=== PATIENT | female | born 1985 | race Caucasian/White ===

== ENCOUNTER 2020-06-14 09:07 | Outpatient (REF) | payer OTHER, SELFPAY | END 2020-06-14 09:08 | disposition home or self-care (01) | LOC: HO.LAB 09:07 | PROVIDERS: Visit Provider Internal Medicine | DX: Z20.828 Contact with and (suspected) exposure to other viral communicable diseases (principal) | CPT/HCPCS: C9803; U0003 ==

== ENCOUNTER 2020-06-25 16:41 | Emergency (ER) | payer OTHER, SELFPAY ==
[2020-06-25 16:50] VITALS: BP 151/100; PULSE 82; RESP 16; TEMP 36.9; O2SAT 99; BMI 23.3
--- NOTE | 2020-06-25 17:13 | ED_ITS ---
HPI - General Adult General Chief complaint: General Medical Stated complaint: hives Time Seen by Provider: 06/25/20 17:06 Source: patient Mode of arrival: ambulatory History of Present Illness HPI narrative: 35-year-old female with past medical history of seizure disorder, asthma, and prior allergic reaction presents with hives to her face, bilateral flanks and abdomen, and arms. she does not report using any new products, eating any new foods, or any exposures to known allergens. She does not report chest pain or pressure, palpitations, wheezing, abdominal pain, abdominal distention, dysuria, hematuria, and edema. Onset (ago): hour(s) ( Several hours) Location: face, chest, abdomen, left, right and upper extremity Severity: moderate Severity scale (1-10): 5 Quality: burning and other ( itching) Relieving factors: none Treatments prior to arrival: none Related Data Home Medications Medication Instructions Recorded Confirmed albuterol sulfate 1 unit INHALATION Q6H PRN 06/25/20 06/25/20 cetirizine 1 tab PO DAILY 06/25/20 06/25/20 epinephrine 1 device IM DIRECTED 06/25/20 06/25/20 fluticasone propion-salmeterol drp INHALATION Q12H 06/25/20 06/25/20 levetiracetam 1 tab PO BID 06/25/20 06/25/20 Allergies Allergy/AdvReac Type Severity Reaction Status Date / Time animal dander Allergy Itching Verified 06/25/20 17:00 house dust Allergy Watery Eye Verified 06/25/20 17:00 seafood Allergy Hives Verified 06/25/20 17:00 Fruit Allergy Hives Uncoded 06/25/20 17:00 Review of Systems Review of Systems: Constitutional: No Fever, No Chills ENT/Mouth:no oral swelling, No Hoarseness, No Swallowing Difficulty Eyes: No Eye Pain, No Swelling, No Redness Cardiovascular: No Chest Pain, No SOB Respiratory: No Cough, No Sputum, No Wheezing, No Smoke Exposure, No Dyspnea Gastrointestinal: No Nausea, No Vomiting, No Diarrhea, No abdominal Pain Genitourinary: No Dysuria, No Urinary Frequency, No Hematuria Musculoskeletal: No joint pain, No Myalgias, No Joint Swelling Skin: No Skin Lesions, positive rash to face, manoj flank, abd and arms Neuro: No Weakness, No Numbness, No Headache Psych: No Anxiety/Panic, No Depression Heme/Lymph: No Bruising, No Lymphadenopathy Endocrine: No Polyuria, No Polydipsia Yes all other systems are reviewed and are negative [facility] Past Medical History Attestation statement: The following information was validated with the patient. Medical History Asthma COPD (chronic obstructive pulmonary disease) Hypertension Seizures Surgical History History of hysterectomy Social History Social History Alcohol intake: never Smoking Status: Never smoker Use of substances other than those prescribed or required for medical reasons: No Advance Directives: No Advance Directives Information Provided: No Physical Exam Vital Signs: Vital Signs: Last Vital Signs Temp 98.5 F 06/25/20 16:50 Pulse 65 06/25/20 17:37 Resp 16 06/25/20 17:37 BP 146/101 H 06/25/20 17:37 Pulse Ox 100 06/25/20 17:37 Body Mass Index 23.3 Appearance: Alert. Oriented X3. No acute distress. Eyes: Pupils equal, round and reactive to light. ENT: Pharynx normal. Neck: Normal inspection. Neck supple. CVS: Normal heart rate and rhythm. Pulses normal. Respiratory: No respiratory distress. Breath sounds normal. Abdomen: Soft and nontender. Skin: urticaria and hives to face, arms and chest Skin warm and dry. Normal skin color. Normal skin turgor. Extremities: No lower extremity edema. Neuro: No motor deficit. No sensory deficit. Course Course Course Narrative: 35-year-old female with past medical history of seizure disorder on Keppra, asthma, and history of allergy reaction with EpiPen, presents with mild urticaria and throat irritation. It is unknown what she was exposed to plan of care is for Solu-Medrol, Pepcid, and Benadryl with 1 L of normal saline. Re-evaluation at 8:05 p.m., patient is alert oriented x4, no respiratory distress, appears nontoxic, clear lung sounds to all lobes. Urticaria no longer present. Plan of care is to discharge home with follow-up with primary care physician for follow-up for allergy testing. Patient verbalized understanding of and agrees to plan of care discharge home. Reevaluation(s) Reevaluation #1: After receiving Benadryl, and Solu-Medrol patient had an episode of tachycardia and tremors. She she told the staff nurse that she felt like she was going to seizure, does take Keppra twice a day. Dr. Onofre at bedside at this time with this [employer], patient responsive to smelling salts and able to answer questions. Time: 17:36 Medical Decision Making Differential Diagnosis Differential Diagnosis: Allergic reaction Medical Records Medical records reviewed: Yes I reviewed the patient's medical records. Lab Data Lab results reviewed: Yes I reviewed the patient's lab results. Discharge Plan Discharge Clinical Impression: Urticaria Allergic reaction Qualifiers: Encounter type: initial encounter Qualified Code(s): T78.40XA - Allergy, unspecified, initial encounter Patient Disposition: Home, Self-Care Instructions: Urticaria (ED), Allergies (ED) Additional Instructions: you were evaluated for allergic reaction and rash to the face, arms and chest and some throat irritation. Please follow-up with your primary care physician for further allergy testing. Please take Benadryl every 6 hours as needed to control itching. If symptoms persist or get worse return to the emergency department immediately. Thank you for choosing this emergency department for evaluation. Please follow-up with primary care physician as needed. Return to the emergency department for any new, concerning, or worsening symptoms. Prescriptions: No Action albuterol sulfate 2.5 mg /3 mL (0.083 %) solution for nebulization 1 unit inhalation Q6H PRN (Reason: respiratory symptoms) RF: 0 cetirizine 10 mg tablet 1 tab PO DAILY RF: 0 levetiracetam 500 mg tablet 1 tab PO BID RF: 0 epinephrine 0.3 mg/0.3 mL auto-injector 1 device IM DIRECTED RF: 0 fluticasone propion-salmeterol 232-14 mcg/actuation aerosol powdr breath activated inhalation Q12H RF: 0 Interventions: ED Discharge Assessment Last Done: 06/25/20 20:34 Discharge Date/Time: 06/25/20 20:36
[2020-06-25] MEDS: Famotidine/PF 20 MG/2 ML VIAL IVPUSH (17:27)
[2020-06-25] MEDS: 0.9 % Sodium Chloride 1,000 ML 999 ML IVCONT (17:27)
[2020-06-25] MEDS: methylPREDNISolone Sod Succ/PF 125 MG/2 ML VIAL IVPUSH (17:27)
[2020-06-25] MEDS: diphenhydrAMINE HCL 50 MG/ML VIAL 25 MG IVPUSH (17:27)
[2020-06-25 17:37] VITALS: BP 146/101; PULSE 65; RESP 16; O2SAT 100
--- NOTE | 2020-06-25 17:40 | PC.NURSE ---
PT SITTING S/F IN BED, RR EVEN UNLABORED, SKIN WPD, AOX3, NSR ON TELE. PT REPORTS FEELING THE BEGINNINGS OF AN ALLERGIC RXN, NO KNOWN EXPOSURE SOURCE, REPORTS HX OF SEVERE ALLERGIC REACTIONS. PT IN NAD, LUNGS CTATO, VSS, SPO2 100%, NO APPARENT RASH/HIVES, BREATHING WITH EASE. IV ESTABLIHSED, WHILE PT MEDICATED PT PER EMAR PT STATED I THINK IM GOING TO HAVE A SEIZURE, HR INCREASED TO 150 ON TELE, DR DOBBINS CALLED TO ROOM, PT THEN CLOSED EYES AND HAD BRIEF EPISODE OF FULL BODY SHAKING, NO INCONTINENCE, SPO2 REMAINED 100%. PT SAT UPRIGHT, EPISODE STOPPED AND PT IMMEDIATELY AWAKE/ALERT, HR RETURED TO 70'S.
== END 2020-06-25 20:36 | disposition home or self-care (01) ==
PROVIDERS: Emergency Provider Emergency Medicine
DX: L50.9 Urticaria, unspecified (principal); Z79.899 Other long term (current) drug therapy
CPT/HCPCS: 96361; 96374; 96375; 99284; J1200; J2930

== ENCOUNTER 2020-08-22 12:02 | Emergency (ER) | payer OTHER, SELFPAY ==
[2020-08-22 12:15] VITALS: BP 174/84; PULSE 89; RESP 20; TEMP 37.1; O2SAT 100; BMI 23.8
--- NOTE | 2020-08-22 14:05 | XR_ITS ---
EXAMINATION: XR CHEST CLINICAL INFORMATION: SOB/cough. COMPARISON: None TECHNIQUE: Frontal view of the chest was obtained. FINDINGS: The lungs are hyperinflated but clear of acute process. Heart size and pulmonary vascularity is normal. There is mild scoliosis of dorsal spine. No lytic process seen. XR/XR chest 1V IMPRESSION: Hyperinflated lungs are clear.
--- NOTE | 2020-08-22 14:13 | ED.ASTHMA ---
HPI - Asthma General Chief Complaint: Asthma Stated Complaint: CHEST PAIN Time Seen by Provider: 08/22/20 14:05 Source: patient Mode of arrival: ambulatory Limitations: no limitations History of Present Illness HPI Narrative: 35yoF c PMHx of asthma presenting to the ED c c/o dry cough c wheezing and FB sensation in throat x 4-5 days worse today. She also reports associated left sided chest pain radiating to left shoulder that started last night then resolved and started again this morning and has been constant c associated left arm tingling. With associated dyspnea on exertion and orthopnea. Reports she has been using her albuterol inhaler nebulized solutions. Denies any fevers, chills, headaches, dizziness, nausea/vomiting, jaw pain, symptoms, palpitations, extremity edema or any other symptoms complaints or concerns at this time. Denies recent travel or sick contacts. Related Data Home Medications Medication Instructions Recorded Confirmed albuterol sulfate 1 unit INHALATION Q6H PRN 06/25/20 06/25/20 cetirizine 1 tab PO DAILY 06/25/20 06/25/20 epinephrine 1 device IM DIRECTED 06/25/20 06/25/20 fluticasone propion-salmeterol drp INHALATION Q12H 06/25/20 06/25/20 levetiracetam 1 tab PO BID 06/25/20 06/25/20 Previous Rx's Medication Instructions Recorded albuterol sulfate 0.63 mg INHALATION QID PRN #75 ml 08/22/20 albuterol sulfate 1 inh INHALATION QID PRN #8.5 g 08/22/20 azithromycin See Rx Instructions .ROUTE 08/22/20 .COMPLEX #6 tab prednisone 40 mg PO DAILY 5 Days #10 tab 08/22/20 Allergies Allergy/AdvReac Type Severity Reaction Status Date / Time animal dander Allergy Itching Verified 08/22/20 16:38 house dust Allergy Watery Eye Verified 08/22/20 16:38 seafood Allergy Hives Verified 08/22/20 16:38 methylprednisolone AdvReac Seizure Verified 08/22/20 16:38 Fruit Allergy Hives Uncoded 08/22/20 16:38 Review of Systems Review of Systems: Constitutional : No Weight loss, No Fever, No Chills, No Night Sweats, No Fatigue, No Malaise ENT/Mouth : + FB sensation in throat, No Hearing loss, No Ear Pain, No Nasal Congestion, No Sinus Pain, No Hoarseness, No sore throat, No Rhinorrhea, No Swallowing Difficulty Eyes: No Eye Pain, No Swelling, No Redness, No Foreign Body, No Discharge, No Vision Changes Cardiovascular : + Chest pain, + SOB, + Dyspnea on Exertion, + Orthopnea, No Edema, No extremity swelling, No Palpitations Respiratory : + Cough/wheezing/dyspnea, No Sputum, Gastrointestinal : No Nausea, No Vomiting, No Diarrhea, No abdominal Pain, No Hematochezia, No Melena Genitourinary : No irregular bleeding, No Dysuria, No Urinary Frequency, No Hematuria, No Urinary Incontinence, No Urgency, No Flank Pain, No Urinary Flow Changes, No Hesitancy Musculoskeletal : No joint pain, No Myalgias, No Joint Swelling Skin : No Skin Lesions, No rash Neuro : No Weakness, No Numbness, No Paresthesias, No Loss of Consciousness, No Dizziness, No Headache Psych : No Anxiety/Panic, No Depression, No SI/HI/AH/VH Heme/Lymph: No Bruising, No Bleeding,No Lymphadenopathy Endocrine : No Polyuria, No Polydipsia, No Temperature Intolerance Yes all other systems are reviewed and are negative [facility] Past Medical History Attestation statement: The following information was validated with the patient. Medical History Asthma COPD (chronic obstructive pulmonary disease) Hypertension Seizures Surgical History History of hysterectomy Social History Social History Alcohol intake: never Smoking Status: Never smoker Use of substances other than those prescribed or required for medical reasons: Yes Substance Use Type: Marijuana Advance Directives: No Advance Directives Information Provided: Yes Physical Exam Vital Signs: Vital Signs: Last Vital Signs Temp 98.5 F 08/22/20 14:19 Pulse 85 08/22/20 16:50 Resp 15 08/22/20 16:50 BP 134/91 H 08/22/20 16:50 Pulse Ox 100 08/22/20 16:50 Body Mass Index 23.8 vital signs have been reviewed as normal and appeared to be correct. Blood pressure hypertensive. Heart rate normal. Respiration rate normal. Temperature normal. Oxygen saturation normal. Appearance: Alert. Oriented X3. In moderate respiratory distress. Head: Normal external exam. Normocephalic. Atraumatic. Eyes: PERRLA. EOMI. Conjunctiva and sclera normal. Eyelids normal. ENT: EAC normal. TM's Normal. Pharynx normal. Uvula midline. Moist mucous membranes. No trismus noted. No drooling noted. No muffled voice noted. Neck: Normal inspection. Neck supple. FROM. No adenopathy. Thyroid Normal. No meningeal signs. No neck mass noted. Trachea midline. CVS: Normal heart rate and rhythm. Heart sound normal. No murmurs noted. Pulses normal throughout. Respiratory: In moderate respiratory distress with decreased breath sounds and accessory muscle usage with inspiratory and expiratory wheezing throughout. No rales/rhonchi noted. Chest is nontender. Back: Full range of motion noted. Skin: Skin warm and dry. Normal skin color. Normal skin turgor. No rashes/lesions/lacerations noted. Extremities: No lower extremity edema. No calf tenderness noted. Extremities exhibit normal range of motion. Extremities nontender. Neuro: Oriented X 3. No motor deficit. No sensory deficit. Reflexes normal. Course Course Course Narrative: 35yoF c PMHx of asthma presenting to the ED c c/o dry cough c wheezing and FB sensation in throat x 4-5 days worse today. She also reports associated left sided chest pain radiating to left shoulder that started last night then resolved and started again this morning and has been constant c associated left arm tingling. With associated dyspnea on exertion and orthopnea. - on exam patient is speaking in short phrases in moderate respiratory distress with inspiratory and expiratory wheezing throughout with accessory muscle usage noted. Although oxygen is 100% on room air patient hypertensive otherwise all other vitals are within normal limits. - Concern for ACS/GA vs PE vs PNA vs COVID vs asthma exacerbation vs FB in throat - Plan: Labs, CXR, EKG, CT scan for PE of chest and soft tissues neck CT without contrast to evaluate for possible foreign body of the neck. Provide a L of IV fluids, 125 mg of Solu-Medrol, 2 g of magnesium then re-evaluate. Reevaluation(s) Reevaluation #1: - troponin elevated at 13.5. Otherwise all other labs are WNL. COVID/RSV/flu negative. - EKG normal sinus rhythm no acute ischemic changes noted. - CXR revealed hyperinflated lungs otherwise are clear. - therefore will get a repeat troponin at 17:35pm - awaiting CT scan of neck and CT scan of chest for PE. Will re-evaluate. Time: 15:38 Reevaluation #2: - patient's wheezing has resolved after the 1 hour long breathing treatment although patient had a panic attack/anxiety attack after the breathing treatment finish and had an episode of sinus tachycardia and tremors. She explained to me that last time she was here for an allergic reaction she has Solu-Medrol and had a seizure although it appears that she also had a panic attack/anxiety attack although patient very nervous about receiving the Solu-Medrol therefore will not give any IV steroids or magnesium at this time since the patient's wheezing has completely resolved. - patient received 2 mg of Ativan and feels much better. - awaiting CT scan of neck and CT scan of chest and repeat troponin. Patient understands agrees the plan. Her sister Basia was also updated her number is [phone] and she would like to be called before the patient is discharged. Time: 16:06 Reevaluation #3: - patient's CT scan of neck and CT scan of chest revealed There is mild dilatation/ectasia of the distal aortic arch/proximal descending thoracic aorta The distal aortic arch / proximal descending thoracic aorta is upper normal in size measuring 3 cm. - therefore I printed a copy of the CT scan results and gave it to the patient and explained to her that she will need further evaluation and treatment by a online marketing specialist or thoracic surgeon therefore I will refer her to a online marketing specialist for further evaluation treatment of that. - otherwise no other acute processes were noted. - still awaiting repeat troponin. If negative patient will be discharged home. Sign out to EVETTE Cornejo Time: 18:16 [facility] - Asthma Medical Records Attestation: I reviewed the patient's medical records. Lab Data Attestation: I reviewed the patient's lab results. Result diagrams: 08/22/20 14:30 08/22/20 14:30 Labs: Lab Results 08/22/20 08/22/20 08/22/20 Range/Units 14:30 14:30 14:30 WBC 9.8 (4.8-10.8) X10*3/uL RBC 4.92 (4.20-5.50) X10*6/uL Hgb 15.4 (12.0-16.0) g/dl Hct 44.5 (37-47) % MCV 90.4 (80-98) fL MCH 31.3 (27.0-33.0) pg MCHC 34.6 (31.0-35.0) g/dl RDW 11.9 (11.0-16.0) % Plt Count 262 (160-400) X10*3/uL MPV 9.1 L (9.4-12.3) fL Immature Gran % (Auto) 0.3 (0.0-0.4) % Neut % (Auto) 70.6 (45-73) % Lymph % (Auto) 23.1 (20-40) % [facility] % (Auto) 4.3 (2-11) % Eos % (Auto) 1.4 (0-4) % Baso % (Auto) 0.3 (0-2) % Lymph # (Auto) 2.3 (1.2-4.9) X10*3/uL [facility] # (Auto) 0.4 (0.1-1.2) X10*3/uL Eos # (Auto) 0.1 (0.0-0.4) X10*3/uL Baso # (Auto) 0.0 (0.0-0.2) X10*3/uL Abs Immat Gran (auto) 0.03 (0.00-0.03) X10*3/uL Absolute Neuts (auto) 6.9 (2.0-8.3) X10*3/uL Absolute Nucleated RBC 0.000 (0.0-0.012) X10*3/uL Nucleated RBC % (auto) 0.0 (0.0-0.2) /100WBC PT 11.7 (10.8-13.0) SEC INR 1.0 (0.9-1.1) Sodium (135-145) mmol/L Potassium (3.3-5.1) mmol/l Chloride (96-108) mmol/L Carbon Dioxide (22-29) mmol/L Anion Gap (12-20) BUN (9-16) mg/dL Creatinine (0.5-1.4) mg/dL Estim Creat Clear Calc Estimated GFR Random Glucose (60-115) mg/dL Calcium (8.4-10.2) mg/dL Magnesium (1.6-2.6) mg/dL Troponin I High Sens (<3.5-17.0) ng/L B-Natriuretic Peptide (<100) pg/mL Beta HCG, Quant mIU/mL Urine Color Urine Appearance Urine pH (5.0-8.0) Ur Specific [place] (1.005-1.025) Urine Protein (NEG-TRACE) MG/DL Urine Glucose (UA) (NEG) MG/DL Urine Ketones (NEG) MG/DL Urine Blood (NEG) Urine Nitrite (NEG) Ur Leukocyte Esterase (NEG) Coronavirus (PCR) NEGATIVE (Negative) COVID-19 (DACIA) (Negative) COVID-19 Clin Com Influenza Type A (PCR) NEGATIVE (Negative) Influenza Type B (PCR) NEGATIVE (Negative) RSV RNA Qual (PCR) NEGATIVE (Negative) 08/22/20 08/22/20 08/22/20 Range/Units 14:30 14:30 14:37 WBC (4.8-10.8) X10*3/uL RBC (4.20-5.50) X10*6/uL Hgb (12.0-16.0) g/dl Hct (37-47) % MCV (80-98) fL MCH (27.0-33.0) pg MCHC (31.0-35.0) g/dl RDW (11.0-16.0) % Plt Count (160-400) X10*3/uL MPV (9.4-12.3) fL Immature Gran % (Auto) (0.0-0.4) % Neut % (Auto) (45-73) % Lymph % (Auto) (20-40) % [facility] % (Auto) (2-11) % Eos % (Auto) (0-4) % Baso % (Auto) (0-2) % Lymph # (Auto) (1.2-4.9) X10*3/uL [facility] # (Auto) (0.1-1.2) X10*3/uL Eos # (Auto) (0.0-0.4) X10*3/uL Baso # (Auto) (0.0-0.2) X10*3/uL Abs Immat Gran (auto) (0.00-0.03) X10*3/uL Absolute Neuts (auto) (2.0-8.3) X10*3/uL Absolute Nucleated RBC (0.0-0.012) X10*3/uL Nucleated RBC % (auto) (0.0-0.2) /100WBC PT (10.8-13.0) SEC INR (0.9-1.1) Sodium 140 (135-145) mmol/L Potassium 3.7 (3.3-5.1) mmol/l Chloride 106 (96-108) mmol/L Carbon Dioxide 26 (22-29) mmol/L Anion Gap 12 (12-20) BUN 9 (9-16) mg/dL Creatinine 0.81 (0.5-1.4) mg/dL Estim Creat Clear Calc 71.7 Estimated GFR > 60 Random Glucose 77 (60-115) mg/dL Calcium 9.0 (8.4-10.2) mg/dL Magnesium 2.2 (1.6-2.6) mg/dL Troponin I High Sens (<3.5-17.0) ng/L B-Natriuretic Peptide (<100) pg/mL Beta HCG, Quant < 2 mIU/mL Urine Color Urine Appearance Urine pH (5.0-8.0) Ur Specific [place] (1.005-1.025) Urine Protein (NEG-TRACE) MG/DL Urine Glucose (UA) (NEG) MG/DL Urine Ketones (NEG) MG/DL Urine Blood (NEG) Urine Nitrite (NEG) Ur Leukocyte Esterase (NEG) Coronavirus (PCR) (Negative) COVID-19 (DACIA) Negative (Negative) COVID-19 Clin Com See Note Influenza Type A (PCR) (Negative) Influenza Type B (PCR) (Negative) RSV RNA Qual (PCR) (Negative) 08/22/20 08/22/20 Range/Units 14:37 17:43 WBC (4.8-10.8) X10*3/uL RBC (4.20-5.50) X10*6/uL Hgb (12.0-16.0) g/dl Hct (37-47) % MCV (80-98) fL MCH (27.0-33.0) pg MCHC (31.0-35.0) g/dl RDW (11.0-16.0) % Plt Count (160-400) X10*3/uL MPV (9.4-12.3) fL Immature Gran % (Auto) (0.0-0.4) % Neut % (Auto) (45-73) % Lymph % (Auto) (20-40) % [facility] [place] [facility] % (Auto) (2-11) % Eos % (Auto) (0-4) % Baso % (Auto) (0-2) % Lymph # (Auto) (1.2-4.9) X10*3/uL [facility] [place] [facility] # (Auto) (0.1-1.2) X10*3/uL Eos # (Auto) (0.0-0.4) X10*3/uL Baso # (Auto) (0.0-0.2) X10*3/uL Abs Immat Gran (auto) (0.00-0.03) X10*3/uL Absolute Neuts (auto) (2.0-8.3) X10*3/uL Absolute Nucleated RBC (0.0-0.012) X10*3/uL Nucleated RBC % (auto) (0.0-0.2) /100WBC PT (10.8-13.0) SEC INR (0.9-1.1) Sodium (135-145) mmol/L Potassium (3.3-5.1) mmol/l Chloride (96-108) mmol/L Carbon Dioxide (22-29) mmol/L Anion Gap (12-20) BUN (9-16) mg/dL Creatinine (0.5-1.4) mg/dL Estim Creat Clear Calc Estimated GFR Random Glucose (60-115) mg/dL Calcium (8.4-10.2) mg/dL Magnesium (1.6-2.6) mg/dL Troponin I High Sens 13.5 (<3.5-17.0) ng/L B-Natriuretic Peptide < 10 (<100) pg/mL Beta HCG, Quant mIU/mL Urine Color YELLOW Urine Appearance CLEAR Urine pH 7.0 (5.0-8.0) Ur Specific [place] 1.010 (1.005-1.025) Urine Protein NEG (NEG-TRACE) MG/DL Urine Glucose (UA) NEG (NEG) MG/DL Urine Ketones 5 (NEG) MG/DL Urine Blood NEG (NEG) Urine Nitrite NEG (NEG) Ur Leukocyte Esterase NEG (NEG) Coronavirus (PCR) (Negative) COVID-19 (DACIA) (Negative) COVID-19 Clin Com Influenza Type A (PCR) (Negative) Influenza Type B (PCR) (Negative) RSV RNA Qual (PCR) (Negative) Imaging Data Chest x-ray: Attestation: I personally reviewed and interpreted this imaging study as follows: Radiologist's impression: FINDINGS: The lungs are hyperinflated but clear of acute process. Heart size and pulmonary vascularity is normal. There is mild scoliosis of dorsal spine. No lytic process seen. XR/XR chest 1V IMPRESSION: Hyperinflated lungs are clear. CT chest for PE/soft tissue neck: Attestation: I personally reviewed and interpreted this imaging study as follows: Radiologist's impression: FINDINGS: There is good opacification of the pulmonary arteries. There is no evidence of a pulmonary embolism. The lungs are clear. There is no pleural effusion or pleural thickening. The heart does not appear enlarged. There is mild dilatation/ectasia of the distal aortic arch/proximal descending thoracic aorta The distal aortic arch / proximal descending thoracic aorta is upper normal in size measuring 3 cm. The aorta is otherwise normal caliber. There is no pericardial effusion. There is no hilar or mediastinal lymphadenopathy. No chest wall mass or enlarged axillary lymph nodes are seen. The gallbladder has been removed. Images through the upper abdomen are otherwise unremarkable. Review at bone windows is unremarkable. CT/CT angio chest PE protocol IMPRESSION: No evidence of pulmonary embolism. Mild ectasia of the distal aortic arch/proximal descending thoracic aorta which is upper normal in size measuring 3 cm. EXAMINATION: CT soft tissue neck with contrast CLINICAL INFORMATION: Foreign body sensation in throat COMPARISON: None. TECHNIQUE: Axial images through the neck without contrast. Sagittal and coronal reconstructions on the technologist workstation were performed. Patient dose 4 4 8 mg/cm. FINDINGS: No foreign body is seen. No abnormal air collection is seen. The the naso, 0ro and hypopharynx are normal. There is a small polyp or cyst in the right maxillary sinus. The visualized paranasal sinuses, mastoid air cells and middle ears are otherwise clear. The orbits are normal appearing. The temporomandibular joints are normal. The salivary glands are normal. There are shotty cervical lymphadenopathy. No enlarged lymph nodes are seen. The thyroid gland is normal. Superior mediastinum is normal. Visualized lung apices are clear. The cervical spine is normal. IMPRESSION: No radiopaque foreign body or abnormal air collection seen. ECG Data Attestation: I personally reviewed and interpreted this ECG as follows: ECG interpretation date: 08/22/20 ECG interpretation time: 14:41 Interpretation: Normal sinus rhythm with ventricular rate of 81 with a normal GA interval normal QRS duration normal QT/QTC interval. No acute ischemic changes noted. No prior EKGs to compare to at this time. Critical Care Time Critical Care Time Critical Care Time: Yes Total Critical Care Time: 60 Attestation: I personally attest to this time spent taking care of the patient Discharge Plan Discharge Clinical Impression: Asthma with acute exacerbation, Acute respiratory distress, Aortic dilatation, Elevated troponin Instructions: Asthma (ED), Bronchospasm (ED) Additional Instructions: You have dilation of your aorta. I gave you a copy of your CT scan results. You should follow-up with the online marketing specialist that I referred you to below. For further evaluation and treatment. Prescriptions: New azithromycin 250 mg tablet See Rx Instructions .ROUTE .COMPLEX Qty: 6 RF: 0 prednisone 20 mg tablet 40 mg PO DAILY 5 Days Qty: 10 RF: 0 albuterol sulfate 90 mcg/actuation HFA aerosol inhaler 1 inh inhalation QID PRN (Reason: shortness of breath or wheezing) Qty: 8.5 RF: 0 albuterol sulfate 0.63 mg/3 mL solution for nebulization 0.63 mg inhalation QID PRN (Reason: shortness of breath or wheezing) Qty: 75 RF: 0 No Action albuterol sulfate 2.5 mg /3 mL (0.083 %) solution for nebulization 1 unit inhalation Q6H PRN (Reason: respiratory symptoms) RF: 0 cetirizine 10 mg tablet 1 tab PO DAILY RF: 0 levetiracetam 500 mg tablet 1 tab PO BID RF: 0 epinephrine 0.3 mg/0.3 mL auto-injector 1 device IM DIRECTED RF: 0 fluticasone propion-salmeterol 232-14 mcg/actuation aerosol powdr breath activated inhalation Q12H RF: 0 Referrals: Josh Laura MD [Physician] - 2 days (Aorta dilation) Stand Alone Forms: Work/School Release Print Language: Liberian
[2020-08-22 14:19] VITALS: BP 156/111; PULSE 80; RESP 19; TEMP 36.9; O2SAT 98
--- NOTE | 2020-08-22 14:27 | ECG_ITS ---
Test Reason : CHEST PAIN Blood Pressure : / mmHG Vent. Rate : 081 BPM Atrial Rate : 081 BPM P-R Int : 144 ms QRS Dur : 068 ms QT Int : 390 ms P-R-T Axes : 080 038 071 degrees QTc Int : 453 ms Normal sinus rhythm Normal ECG No previous ECGs available Referred By: Ursula Hendricks Electronically Signed By:Randolph Ascencio
[2020-08-22 14:45] LABS: MANUAL DIFF FLAG NO
[2020-08-22 14:51] LABS: Basophils Percent Auto 0.3 % (0-2); Eosinophils Absolute Auto 0.1 X10*3/uL (0.0-0.4); Eosinophils Percent Auto 1.4 % (0-4); Hematocrit 44.5 % (37-47); Hemoglobin 15.4 g/dl (12.0-16.0); Imm Gran Abs Auto 0.03 X10*3/uL (0.00-0.03); Imm Gran Pct Auto 0.3 % (0.0-0.4); Lymphocytes Absolute Auto 2.3 X10*3/uL (1.2-4.9); Lymphocytes Percent Auto 23.1 % (20-40); Mean Corpuscular HGB Conc 34.6 g/dl (31.0-35.0); Mean Corpuscular Hemoglobin 31.3 pg (27.0-33.0); Mean Corpuscular Volume 90.4 fL (80-98); Mean Platelet Volume 9.1 fL (9.4-12.3); Monocytes Absolute Auto 0.4 X10*3/uL (0.1-1.2); Monocytes Percent Auto 4.3 % (2-11); Neutrophils Absolute Auto 6.9 X10*3/uL (2.0-8.3); Neutrophils Percent Auto 70.6 % (45-73); Platelet Count 262 X10*3/uL (160-400); Red Blood Count 4.92 X10*6/uL (4.20-5.50); Red Cell Distribution Width 11.9 % (11.0-16.0); White Blood Count 9.8 X10*3/uL (4.8-10.8)
[2020-08-22 15:01] LABS: COVID-19 Test Negative (Negative); IDNOW Serial# 9DD0AD1C
[2020-08-22 15:02] LABS: Prothrombin Time 11.7 SEC (10.8-13.0)
[2020-08-22] MEDS: Albuterol Sulfate (0.083%) 2.5 MG/3 ML VIAL.NEB 10 MG INHALE (15:09)
[2020-08-22 15:10] VITALS: PULSE 77; O2SAT 98
[2020-08-22 15:19] LABS: Anion Gap 12 (12-20); Blood Urea Nitrogen 9 mg/dL (9-16); Carbon Dioxide 26 mmol/L (22-29); Chloride 106 mmol/L (96-108); Creatinine Clr Calc Pharmacy 71.7; Estimated Glomerular Filt Rate > 60; Glucose Random 77 mg/dL (60-115); Magnesium 2.2 mg/dL (1.6-2.6); Potassium 3.7 mmol/l (3.3-5.1); Sodium 140 mmol/L (135-145)
[2020-08-22 15:21] LABS: B Type Natriuretic Peptide < 10 pg/mL (<100); Troponin-I High Sensitivity 13.5 ng/L (<3.5-17.0)
--- NOTE | 2020-08-22 15:23 | CT_ITS ---
EXAMINATION: CT ANGIOGRAM CHEST CT PROTOCOL CLINICAL INFORMATION: Shortness of breath COMPARISON: Previous chest x-ray from earlier the same day TECHNIQUE: Axial images through the chest following 65 pound elbow Omnipaque 350 intravenous contrast. Sagittal coronal and 3-D mid reconstructions on the technologist workstation were performed.. Patient dose 3 3 0 mg/cm. FINDINGS: There is good opacification of the pulmonary arteries. There is no evidence of a pulmonary embolism. The lungs are clear. There is no pleural effusion or pleural thickening. The heart does not appear enlarged. There is mild dilatation/ectasia of the distal aortic arch/proximal descending thoracic aorta The distal aortic arch / proximal descending thoracic aorta is upper normal in size measuring 3 cm. The aorta is otherwise normal caliber. There is no pericardial effusion. There is no hilar or mediastinal lymphadenopathy. No chest wall mass or enlarged axillary lymph nodes are seen. The gallbladder has been removed. Images through the upper abdomen are otherwise unremarkable. Review at bone windows is unremarkable. CT/CT angio chest PE protocol IMPRESSION: No evidence of pulmonary embolism. Mild ectasia of the distal aortic arch/proximal descending thoracic aorta which is upper normal in size measuring 3 cm. EXAMINATION: CT soft tissue neck with contrast CLINICAL INFORMATION: Foreign body sensation in throat COMPARISON: None. TECHNIQUE: Axial images through the neck without contrast. Sagittal and coronal reconstructions on the technologist workstation were performed. Patient dose 4 4 8 mg/cm. FINDINGS: No foreign body is seen. No abnormal air collection is seen. The the naso, 0ro and hypopharynx are normal. There is a small polyp or cyst in the right maxillary sinus. The visualized paranasal sinuses, mastoid air cells and middle ears are otherwise clear. The orbits are normal appearing. The temporomandibular joints are normal. The salivary glands are normal. There are shotty cervical lymphadenopathy. No enlarged lymph nodes are seen. The thyroid gland is normal. Superior mediastinum is normal. Visualized lung apices are clear. The cervical spine is normal. IMPRESSION: No radiopaque foreign body or abnormal air collection seen.
[2020-08-22 15:25] LABS: HCG Quantitative < 2 mIU/mL; Influenza A PCR NEGATIVE (Negative); Influenza B PCR NEGATIVE (Negative); Resp Syncy Virus RNA Qual PCR NEGATIVE (Negative); SARS COV2 PCR INHOUSE NEGATIVE (Negative)
[2020-08-22] MEDS: 0.9 % Sodium Chloride 1,000 ML 999 ML IVCONT (15:57)
[2020-08-22] MEDS: LORazepam 2 MG/ML VIAL 1 MG IVPUSH ×2 (15:57→16:03)
--- NOTE | 2020-08-22 16:05 | PC.NURSE ---
Pt had a moment of anxiety after albuterol treatment. HR up to 140s with numbness and tingling to face and extremities. Pt given 1mg IV Ativan x2 and she became much less anxious with HR trending down.
[2020-08-22 16:12] VITALS: BP 147/89; PULSE 91
[2020-08-22] MEDS: iohexoL 350 MG/ML 100 ML INFUS..BTL IV (16:45)
[2020-08-22 16:50] VITALS: BP 134/91; PULSE 85; RESP 15; O2SAT 100
[2020-08-22 18:05] LABS: Glucose Urine UA NEG (NEG); Leukocyte Esterase Urine NEG (NEG); Nitrite Urine NEG (NEG); Urine Blood NEG (NEG); Urine Ketones 5 MG/DL (NEG); Urine Protein NEG (NEG-TRACE)
[2020-08-22 18:22] LABS: Appearance Urine CLEAR; Color Urine YELLOW
[2020-08-22] MEDS: Omeprazole 40 MG CAPSULE.DR PO (19:50)
--- NOTE | 2020-08-22 20:24 | PC.NURSE ---
Pt ambulating from bathroom to [facility] bed, states she vomited multiple times in the bathroom. Pt continues feeling nauseated, dry heaving in emesis bag. Per SECURITY SERVICES MANAGER to protocol Marga ODT despite severity warning with ABX.
[2020-08-22 20:29] VITALS: BP 152/90; PULSE 80; RESP 20; O2SAT 96
--- NOTE | 2020-08-22 20:38 | PC.NURSE ---
Addendum entered by Barb Yi 08/22/20 20:39: Pt ambulating with a velazquez/steady gait to the waiting room to await a ride home. Original Note: Pt medicated with Zofran for nausea. Pt insisting this RN document all medications given on DC paperwork. This RN reviewing all DC paperwork with pt. Pt verbalized understanding of DC paperwork and the need to f/u with cardiology due to aortic dilation. Pt ambulating to the waiting room, states she is going to call her sister for a ride home as she doesn't feel well. VSS.
== END 2020-08-22 20:40 | disposition home or self-care (01) ==
PROVIDERS: Physician Assistant Medical; Emergency Provider Internal Medicine; PCP Internal Medicine
DX: J45.901 Unspecified asthma with (acute) exacerbation (principal); R06.03 Acute respiratory distress; I77.819 Aortic ectasia, unspecified site; R77.8 Other specified abnormalities of plasma proteins; Z20.822 Contact with and (suspected) exposure to COVID-19; I10 Essential (primary) hypertension
CPT/HCPCS: 0241U; 36415; 70490; 71045; 71275; 80048; 81003; 83735; 83880; 84484; 84702; 85025; 85610; 87635; 93005; 94640; 94644; 96361; 96365; 96375; 99284; 99291; J2060; Q9967

== ENCOUNTER 2020-08-26 04:40 | Emergency (ER) | payer OTHER, SELFPAY ==
[2020-08-26 04:53] VITALS: BP 148/99; PULSE 79; RESP 19; TEMP 37; O2SAT 100; BMI 22.6
--- NOTE | 2020-08-26 05:16 | ECG_ITS ---
Test Reason : CHEST PAIN Blood Pressure : / mmHG Vent. Rate : 072 BPM Atrial Rate : 072 BPM P-R Int : 150 ms QRS Dur : 068 ms QT Int : 400 ms P-R-T Axes : 073 050 063 degrees QTc Int : 438 ms Normal sinus rhythm with sinus arrhythmia Normal ECG When compared with ECG of 16-NOV-2018 12:57, No significant change was found Referred By: Tawnya Hernandez Electronically Signed By:Randolph Ascencio
--- NOTE | 2020-08-26 06:04 | ED_ITS ---
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 At the time that she was experiencing the heart palpitations she took her blood pressure and noted that it was approximately 140s over 100s. Patient reports she is currently asymptomatic and denies any fevers, chills, GI symptoms, symptoms. She states she has an appointment this afternoon with Cardiology and that her primary care provider has set up an appointment at [facility] for stress test and a repeat troponin levels. Patient states that her primary care provider started her on Ativan/tramadol. Related Data Home Medications Medication Instructions Recorded Confirmed albuterol sulfate 1 unit INHALATION Q6H PRN 06/25/20 06/25/20 cetirizine 1 tab PO DAILY 06/25/20 06/25/20 epinephrine 1 device IM DIRECTED 06/25/20 06/25/20 fluticasone propion-salmeterol drp INHALATION Q12H 06/25/20 06/25/20 levetiracetam 1 tab PO BID 06/25/20 06/25/20 Previous Rx's Medication Instructions Recorded albuterol sulfate 0.63 mg INHALATION QID PRN #75 ml 08/22/20 albuterol sulfate 1 inh INHALATION QID PRN #8.5 g 08/22/20 azithromycin See Rx Instructions .ROUTE 08/22/20 .COMPLEX #6 tab prednisone 40 mg PO DAILY 5 Days #10 tab 08/22/20 Allergies Allergy/AdvReac Type Severity Reaction Status Date / Time animal dander Allergy Itching Verified 08/23/20 12:27 house dust Allergy Watery Eye Verified 08/23/20 12:27 seafood Allergy Hives Verified 08/23/20 12:27 methylprednisolone AdvReac Seizure Verified 08/23/20 12:27 Seafood Allergy Mild ITCHING Uncoded 08/23/20 12:27 Fruit Allergy Hives Uncoded 08/23/20 12:27 Review of Systems Review of Systems: Pertinent positives and negatives as stated in HPI and 10 point review of systems is otherwise negative. PMFSH Past Medical History Source: nursing notes reviewed Medical History Asthma COPD (chronic obstructive pulmonary disease) Hypertension Seizures Surgical History History of hysterectomy Social History Social History Alcohol intake: never Smoking Status: Never smoker Use of substances other than those prescribed or required for medical reasons: Yes Substance Use Type: Marijuana Substance Use Frequency: Occasionally Advance Directives: No Physical Exam Vital Signs: Vital Signs: Last Vital Signs Temp 98.2 F 08/26/20 06:25 Pulse 77 08/26/20 06:25 Resp 16 08/26/20 06:25 BP 131/96 H 08/26/20 06:25 Pulse Ox 98 08/26/20 06:25 Body Mass Index 22.6 VITAL SIGNS: Reviewed. GENERAL: Well developed, well nourished, in no acute distress. HEAD: Normocephalic/atraumatic, EYES: PERRLA, EOMI EARS: Ext canals without abnormality NOSE: Nares patent bilateral OROPHARYNX: no oral lesions noted, posterior pharynx clear NECK: Supple, no adenopathy LUNGS: Normal breath sounds. No adventitious sounds or accessory muscle use. SpO2<100> CARDIOVASCULAR: Regular rate and rhythm without noted murmurs ABDOMEN: Soft, non-tender, non-distended with bowel sounds. NEUROLOGIC: Alert and oriented x 4. Course Course Course Narrative: This is a 35-year-old female with history and clinical presentation most consistent with anxiety, and recent extensive workup on 08/22 that included PE evaluation, serial troponins, soft tissue neck CT/chest x-ray. Patient's blood pressure is noted to be slightly elevated, but feel that this could be best evaluated by her primary care provider and a shared decision making regarding restarting her antihypertensives. Review of all investigations is negative for any electrolyte abnormalities, TSH is within normal limits and high sensitivity troponin and EKG are without acute changes. Results and findings were discussed with patient at bedside and she was strongly encouraged to continue her follow-up with cardiology as well as scheduled stress test. MDM - Chest Pain Lab Data Result diagrams: 08/26/20 06:20 Labs: Lab Results 0108/26/20 08/26/20 Range/Units 06:20 06:20 06:20 Sodium 142 (135-145) mmol/L Potassium 3.3 (3.3-5.1) mmol/l Chloride 108 (96-108) mmol/L Carbon Dioxide 23 (22-29) mmol/L Anion Gap 14 (12-20) BUN 14 D (9-16) mg/dL Creatinine 0.83 (0.5-1.4) mg/dL Estim Creat Clear Calc 70.0 Estimated GFR > 60 Random Glucose 97 (60-115) mg/dL Calcium 9.7 D (8.4-10.2) mg/dL Total Bilirubin 0.8 (0.0-1.0) mg/dL AST 15 (5-31) U/L ALT 12 (0-31) U/L Alkaline Phosphatase 67 (39-117) U/L Troponin I High Sens (<3.5-17.0) ng/L Total Protein 7.5 (6.5-8.0) g/dL Albumin 4.5 (3.5-5.0) g/dL Lipase 56 (8-78) U/L TSH 3.19 (0.32-4.0) mIU/mL Urine Color YELLOW Urine Appearance CLEAR Urine pH 6.5 (5.0-8.0) Ur Specific [place] 1.010 (1.005-1.025) Urine Protein NEG (NEG-TRACE) MG/DL Urine Glucose (UA) NEG (NEG) MG/DL Urine Ketones NEG (NEG) MG/DL Urine Blood NEG (NEG) Urine Nitrite NEG (NEG) Ur Leukocyte Esterase NEG (NEG) Urine Test NEGATIVE (NEGATIVE) Urine Opiates Screen (Not Detect) Ur Barbiturates Screen (Not Detect) Ur Phencyclidine Scrn (Not Detect) Ur Amphetamines Screen (Not Detect) U Benzodiazepines Scrn (Not Detect) Urine Cocaine Screen (Not Detect) U Marijuana (THC) Screen (Not Detect) 08/26/20 08/26/20 Range/Units 06:20 06:23 Sodium (135-145) mmol/L Potassium (3.3-5.1) mmol/l Chloride (96-108) mmol/L Carbon Dioxide (22-29) mmol/L Anion Gap (12-20) BUN (9-16) mg/dL Creatinine (0.5-1.4) mg/dL Estim Creat Clear Calc Estimated GFR Random Glucose (60-115) mg/dL Calcium (8.4-10.2) mg/dL Total Bilirubin (0.0-1.0) mg/dL AST (5-31) U/L ALT (0-31) U/L Alkaline Phosphatase (39-117) U/L Troponin I High Sens 10.6 (<3.5-17.0) ng/L Total Protein (6.5-8.0) g/dL Albumin (3.5-5.0) g/dL Lipase (8-78) U/L TSH (0.32-4.0) mIU/mL Urine Color Urine Appearance Urine pH (5.0-8.0) Ur Specific [place] (1.005-1.025) Urine Protein (NEG-TRACE) MG/DL Urine Glucose (UA) (NEG) MG/DL Urine Ketones (NEG) MG/DL Urine Blood (NEG) Urine Nitrite (NEG) Ur Leukocyte Esterase (NEG) Urine Test (NEGATIVE) Urine Opiates Screen Not Detected (Not Detect) Ur Barbiturates Screen Not Detected (Not Detect) Ur Phencyclidine Scrn Not Detected (Not Detect) Ur Amphetamines Screen Not Detected (Not Detect) U Benzodiazepines Scrn Not Detected (Not Detect) Urine Cocaine Screen Not Detected (Not Detect) U Marijuana (THC) Screen POSITIVE H (Not Detect) ECG Data ECG #1: Attestation: I personally reviewed and interpreted this ECG as follows: Prior ECG tracings: available for review (08/22/2020 no acute changes on comparison) Interpretation: Normal sinus rhythm, HR-72, no evidence of acute ischemia, AK/QRS/QTC are within normal limits. Discharge Plan Discharge Clinical Impression: Atypical chest pain, Anxiety Patient Disposition: Home, Self-Care Additional Instructions: 1. Please resume all of your home medications as prescribed. 2. Please keep all follow-up appointments to include the cardiology appointment today as well as the stress test appointment. Do not hesitate to return to the emergency department should you experience acute worsening of your symptoms. Prescriptions: No Action albuterol sulfate 2.5 mg /3 mL (0.083 %) solution for nebulization 1 unit inhalation Q6H PRN (Reason: respiratory symptoms) RF: 0 cetirizine 10 mg tablet 1 tab PO DAILY RF: 0 levetiracetam 500 mg tablet 1 tab PO BID RF: 0 epinephrine 0.3 mg/0.3 mL auto-injector 1 device IM DIRECTED RF: 0 fluticasone propion-salmeterol 232-14 mcg/actuation aerosol powdr breath activated inhalation Q12H RF: 0 azithromycin 250 mg tablet See Rx Instructions .ROUTE .COMPLEX Qty: 6 RF: 0 prednisone 20 mg tablet 40 mg PO DAILY 5 Days Qty: 10 RF: 0 albuterol sulfate 90 mcg/actuation HFA aerosol inhaler 1 inh inhalation QID PRN (Reason: shortness of breath or wheezing) Qty: 8.5 RF: 0 albuterol sulfate 0.63 mg/3 mL solution for nebulization 0.63 mg inhalation QID PRN (Reason: shortness of breath or wheezing) Qty: 75 RF: 0 Referrals: Aimee Schmidt MD [Primary Care Provider] - 2 days (Re-evaluation after patient seen in the emergency department for palpitations and elevated blood pressure.)
[2020-08-26 06:25] VITALS: BP 131/96; PULSE 77; RESP 16; TEMP 36.8; O2SAT 98
[2020-08-26 06:45] LABS: Glucose Urine UA NEG (NEG); Leukocyte Esterase Urine NEG (NEG); Nitrite Urine NEG (NEG); PH 6.5 (5.0-8.0); Urine Blood NEG (NEG); Urine Ketones NEG (NEG); Urine Protein NEG (NEG-TRACE)
[2020-08-26 06:46] LABS: Appearance Urine CLEAR; Color Urine YELLOW
[2020-08-26 06:47] LABS: UPreg QC Valid YES; Urine Pregnancy NEGATIVE (NEGATIVE)
[2020-08-26 07:04] LABS: Lipase 56 U/L (8-78)
[2020-08-26 07:05] LABS: Alanine Aminotransferase 12 U/L (0-31); Albumin Level 4.5 g/dL (3.5-5.0); Alkaline Phosphatase 67 U/L (39-117); Anion Gap 14 (12-20); Aspartate Amino Transferase 15 U/L (5-31); Bilirubin Total 0.8 mg/dL (0.0-1.0); Blood Urea Nitrogen 14 mg/dL (9-16); Calcium 9.7 mg/dL (8.4-10.2); Carbon Dioxide 23 mmol/L (22-29); Chloride 108 mmol/L (96-108); Estimated Glomerular Filt Rate > 60; Glucose Random 97 mg/dL (60-115); Potassium 3.3 mmol/l (3.3-5.1); Sodium 142 mmol/L (135-145); Total Protein 7.5 g/dL (6.5-8.0)
[2020-08-26 07:09] LABS: Troponin-I High Sensitivity 10.6 ng/L (<3.5-17.0)
[2020-08-26 07:21] LABS: Amphetamine Screen Urine Not Detected (Not Detect); Barbiturates, Urine Not Detected (Not Detect); Benzodiazepines Screen Urine Not Detected (Not Detect); Cannabinoid Screen Urine POSITIVE (Not Detect); Cocaine Screen Urine Not Detected (Not Detect); Opiate Screen Urine Not Detected (Not Detect); Phencyclidine Screen Urine Not Detected (Not Detect)
[2020-08-26 07:25] LABS: TSH reflex Free T4 3.19 mIU/mL (0.32-4.0)
[2020-09-01 11:12] LABS: Levetiracetam Keppra <1.0 mcg/mL (12.0-46.0)
== END 2020-08-26 08:01 | disposition home or self-care (01) ==
PROVIDERS: Emergency Provider Student in an Organized Health Care Education/Training Program; PCP Internal Medicine
DX: R07.89 Other chest pain (principal); F41.1 Generalized anxiety disorder; F43.0 Acute stress reaction; R00.2 Palpitations; Z79.899 Other long term (current) drug therapy
CPT/HCPCS: 36415; 80053; 80177; 80307; 81003; 81025; 83690; 84443; 84484; 93005; 99202; 99283; 99284

== ENCOUNTER → 2020-09-29 12:20 | Outpatient (REF) | payer OTHER, SELFPAY ==
--- NOTE | 2020-09-29 12:23 | CA_ITS ---
Transthoracic Echocardiogram Patient (Last, First, Middle): Shae Westbrook, Gender: Female Date of : 1985 Age: 35 Procedure Date: 09/29/2020 Procedure Type: Transthoracic Echocardiogram Location: OP Height: 154.94 cm Weight: 56.25 kg BSA: 1.54 m2 Heart Rate: bpm BP: 139 / 90 mmHg Alteration Tailor: KEYONNA Referring MD: Randolph Ascencio MD Symptoms: R07.89 - Other chest pain Study Quality: Good ECG Rhythm: Sinus Conclusions: - The left ventricular systolic function is normal. The visually estimated ejection fraction is between 60-65%. - There is mild mitral valve regurgitation. Findings Left Ventricle Normal left ventricular cavity size. There is normal left ventricular wall thickness. The left ventricular systolic function is normal. The visually estimated ejection fraction is between 60-65%. There is no evidence of regional wall motion abnormalities. Diastolic function is normal for age. Right Ventricle Normal right ventricular cavity size and systolic function. Atria The left atrium is normal in size. The right atrium is normal in size. Aortic Valve There is a normal trileaflet aortic valve. There is no aortic valve stenosis. There is trace (trivial) aortic valve regurgitation. Mitral Valve The mitral valve appears normal. There is mild mitral valve regurgitation. There is no mitral valve stenosis. Pulmonic Valve The pulmonic valve was not well visualized. Tricuspid Valve Normal tricuspid valve structure. There is trace tricuspid valve regurgitation. The pulmonary artery systolic pressure is normal. Great Vessels The aortic annulus, sinuses of valsalva, and asc aorta are normal in size. Venous The inferior vena cava is mildly dilated and collapses greater than 50% with inspiration. Pericardium/Pleural There is no evidence of pericardial effusion. Prior Study Comparison No prior study available for comparison. Measurements M-Mode Liner Measurements Normals - Women/Men AOV Cusps: 1.80 1.5-2.6 cm/m2 2D Linear Measurements IVSd: 0.73 0.6-0.9/0.6-1.0 cm LVIDd: 4.13 3.9-5.3/4.2-5.9 cm LVIDd Index: 2.68 2.4-3.2/2.2-3.1 cm/m2 LVIDs: 2.91 2.0-3.6 cm LVPWd: 0.71 0.7-1.1 cm Ao Root: 2.20 2.1-3.5 cm LA Diam: 2.60 2.7-3.8/3.0-4.0 cm LAIDs Index: 1.69 1.5-2.3 cm/m2 LV Mass: 106.17 67-162/88-224 g LV Mass Index: 68.94 43-95/49-115 g/m2 LVOT Diam: 1.80 3.0+(-)1.3 cm 2D Systolic Function EF 4C: 59.80 >55% EF 2C: 65.60 >55% EF BiP: 63.80 >55% Mitral Valve MV Pk E: 1.02 MV PK A: 0.69 MV Decel Time: 211.00 E/A: 1.50 E'Lateral: 10.20 E'Medial: 9.14 E/E' Med: 11.20 E/E' Lat: 10.00 PHT: 62.00 MVA PHT: 3.55 Decel [place]: 4.82 Aortic Valve AoV Pk Haseeb: 1.29 AoV Pk Grad: 7.00 LVOT LVOT Pk Haseeb: 0.92 LVOT Mn Haseeb: 0.67 LVOT VTI: 0.22 LVOT Pk Grad: 3.00 LVOT Mn Grad: 2.00 LVOT Diam: 1.80 LVOT Area: 2.54 Diastolic Function MV Pk E: 1.02 MV Pk A: 0.69 E/A: 1.50 E'Medial: 9.14 E/E' Med: 11.20 E' Laterial: 10.20 E/E' Lat: 10.00 Tricuspid Valve TR Pk Haseeb: 2.42 TR Pk Grad: 23.00 Great Vessels Aorta Ao Root-2D: 2.20 2.0-3.7 cm Ao Asc: 2.90 2.1-3.4 cm Ao Arch: 2.10 Pulmonary Valve PV Pk Haseeb: 0.95 Peak PV Grad: 4.00 Updated in Other Vendor System with Status of Final David Mota MD electronically signed on 09/30/2020 3:33:02 PM with status of Final
== END ==
LOC: HO.CARD 12:20
PROVIDERS: Visit Provider Internal Medicine Cardiovascular Disease
DX: R07.89 Other chest pain (principal)
CPT/HCPCS: 93306

== ENCOUNTER → 2020-10-19 08:46 | Outpatient (BNVA) | payer OTHER, SELFPAY | PROVIDERS: PCP Internal Medicine; Visit Provider Internal Medicine Cardiovascular Disease | DX: R07.9 Chest pain, unspecified (principal); I10 Essential (primary) hypertension | CPT/HCPCS: 99212 ==

== ENCOUNTER → 2021-04-19 08:57 | Outpatient (BNVA) | payer OTHER, SELFPAY | PROVIDERS: PCP Internal Medicine; Visit Provider Internal Medicine Cardiovascular Disease | DX: I10 Essential (primary) hypertension (principal) | CPT/HCPCS: 99212 ==

== ENCOUNTER 2021-08-02 18:42 | Emergency (ER) | payer OTHER, SELFPAY ==
--- NOTE | 2021-08-02 | ECG_ITS ---
Test Reason : upper res Blood Pressure : / mmHG Vent. Rate : 078 BPM Atrial Rate : 078 BPM P-R Int : 156 ms QRS Dur : 066 ms QT Int : 396 ms P-R-T Axes : 083 042 065 degrees QTc Int : 451 ms Normal sinus rhythm Normal ECG When compared with ECG of 26-AUG-2020 04:46, No significant change was found Referred By: Generic ED Physician Electronically Signed By:HELLEN POWER MD
--- NOTE | ~2021-08-02 | XR_ITS ---
EXAMINATION: XR CHEST CLINICAL INFORMATION: Dyspnea. COMPARISON: Chest radiograph dated from 08/22/2020. TECHNIQUE: PA view of the chest was obtained. FINDINGS: No significant abnormality is noted involving the heart, lungs, mediastinum, bony thorax or soft tissues. XR/XR chest 1V IMPRESSION: Unremarkable examination.
[2021-08-02 20:46] VITALS: BP 147/105; PULSE 78; RESP 18; TEMP 36.9; O2SAT 100; BMI 21.7
--- NOTE | 2021-08-02 21:53 | ED_ITS ---
HPI - General Adult General Chief complaint: Upper Respiratory Symptoms Stated complaint: covid + diarrhea ad pain Time Seen by Provider: 08/02/21 21:51 Source: patient Mode of arrival: ambulatory Limitations: no limitations History of Present Illness HPI narrative: 36 y/o female with history of asthma/COPD, HTN, who presents to the ER with worsening COVID symptoms over the last few days. She was diagnosed on 07/29 and she is vaccinated with 2 shots. She states for the last 2 days she has had anywhere from 4-6 watery bouts of diarrhea. She also reports shortness of breath and wheezing, not relieved with her p.r.n. albuterol inhaler. She reports pain with deep inspiration and generalized weakness. She has had poor p.o. intake. She works for [employer] where there is an RSV outbreak and she is worried she may also have that. She denies any abdominal pain, dyspnea on exertion, exertional chest pain. MD complaint: diarrhea, weakness, SOB Onset (ago): day(s) (4) Location: chest and back Radiation: non-radiation Severity: moderate Severity scale (1-10): 6 Quality: aching Pain Consistency: intermittent Relieving factors: rest Exacerbating factors: eating Associated symptoms: cough, fever/chills, headaches, loss of appetite, malaise, shortness of breath and weakness Treatments prior to arrival: none Related Data Home Medications Medication Instructions Recorded Confirmed albuterol sulfate 1 unit INHALATION Q6H PRN 06/25/20 04/19/21 epinephrine 0.3 mg/0.3 mL 1 device IM DIRECTED 06/25/20 04/19/21 injection, auto-injector fluticasone 232 mcg-salmeterol 14 drp INHALATION Q12H 06/25/20 04/19/21 mcg/actuation breath activated powdr levetiracetam 500 mg tablet 1 tab PO BID 06/25/20 04/19/21 cetirizine 10 mg tablet 10 mg PO DAILY PRN 10/19/20 04/19/21 lisinopril 2.5 mg tablet 2.5 mg PO DAILY 10/19/20 04/19/21 Previous Rx's Medication Instructions Recorded albuterol sulfate 0.63 mg/3 mL 0.63 mg (3 mL) INHALATION QID PRN 08/22/20 solution for nebulization #75 ml albuterol sulfate 90 mcg/actuation 1 inh INHALATION QID PRN #8.5 g 08/22/20 aerosol inhaler Allergies Allergy/AdvReac Type Severity Reaction Status Date / Time animal dander Allergy Itching Verified 04/19/21 09:00 house dust Allergy Watery Eye Verified 04/19/21 09:00 seafood Allergy Hives Verified 04/19/21 09:00 methylprednisolone AdvReac Seizure Verified 04/19/21 09:00 prednisone AdvReac numbness Verified 04/19/21 09:00 Seafood Allergy Mild ITCHING Uncoded 08/23/20 12:27 Fruit Allergy Hives Uncoded 08/23/20 12:27 Review of Systems Review of Systems: Constitutional: No Fever, No Chills ENT/Mouth: No sore throat, No Rhinorrhea, No Swallowing Difficulty Cardiovascular: + Chest Pain, + SOB, No Orthopnea, No Edema Respiratory: + Cough, No Sputum, + Wheezing, No dyspnea Gastrointestinal: No Nausea, No Vomiting, + Diarrhea, No abdominal Pain Musculoskeletal: No joint pain, No Myalgias Skin: No Skin Lesions, No rash Neuro: + Weakness, No Numbness, No Dizziness, + Headache Psych: + Anxiety/Panic Heme/Lymph: No Lymphadenopathy PMFSH Past Medical History Medical History (Updated 08/02/21 @ 23:08 by JEWELS Nuñez) Asthma COPD (chronic obstructive pulmonary disease) Hypertension Seizures Surgical History History of cholecystectomy History of hysterectomy History of tubal ligation Family History Family History Mother Diabetes HTN (hypertension) Dementia Father HTN (hypertension) Maternal Uncle Heart disease Family/Other Cancer Lung cancer Stomach cancer Social History Social History Alcohol intake: never Substance Use Type: Marijuana Advance Directives: No Advance Directives Information Provided: No Patient : No Physical Exam Vital Signs: Vital Signs: Last Vital Signs Temp 98.4 F 08/02/21 20:46 Pulse 78 08/02/21 20:46 Resp 18 08/02/21 20:46 BP 147/105 H 08/02/21 20:46 Pulse Ox 100 08/02/21 20:46 BMI result Body Mass Index 21.7 Appearance: Alert. Oriented X3. No acute distress. Appears well. Eyes: Normal inspection. ENT: Pharynx normal. Moist mucous membranes. Neck: Normal inspection. Neck supple. CVS: Normal heart rate and rhythm. Pulses normal. Mild chest wall tenderness throughout. Respiratory: No respiratory distress. Breath sounds with very faint and end expiratory wheeze in right lower lobe only. Otherwise clear throughout. Abdomen: Soft and nontender. +BS x4 Skin: Skin warm and dry. Normal skin color. Normal skin turgor. No rashes. Extremities: No lower extremity edema. No calf tenderness, erythema. Neuro: Oriented X 3. Grossly normal, nonfocal. Course Course Course Narrative: 36-year-old female with a history of asthma, hypertension who presents to the ER with worsening COVID symptoms. She was diagnosed 5 days ago. She reports worsening GI symptoms over the past couple of days with multiple bouts of watery diarrhea. She has no abdominal pain. Will check basic lab workup, chest x-ray, EKG. Her lungs are clear with a very faint end expiratory wheeze at the right base only. Vital signs are normal and she appears well. Reevaluation(s) Reevaluation #1: Patient tested negative for flu, RSV, influenza. Basic lab workup did not show any electrolyte derangements. Her chest x-ray is clear and her EKG is not showing any ischemic changes. Her symptoms most likely due to ongoing COVID-19 infection. At this time it is recommended that she does not return to work. Will provide a work note. Advised to take Imodium and other [id number] medications as needed for her symptoms. Patient is stable for discharge home with ongoing supportive care and outpatient follow-up. Medical Decision Making Lab Data Result diagrams: 08/02/21 22:12 08/02/21 22:12 Labs: Lab Results 08/02/21 08/02/21 Range/Units 22:12 22:12 WBC 7.4 (4.8-10.8) X10*3/uL RBC 4.06 L (4.20-5.50) X10*6/uL Hgb 12.6 (12.0-16.0) g/dl Hct 36.3 L (37.0-47.0) % MCV 89.4 (80.0-98.0) fL MCH 31.0 (27.0-33.0) pg MCHC 34.7 (31.0-35.0) g/dl RDW 11.4 (11.0-16.0) % Plt Count 222 (160-400) X10*3/uL MPV 9.3 L (9.4-12.3) fL Immature Gran % (Auto) 0.1 (0.0-0.4) % Neut % (Auto) 61.8 (45-73) % Lymph % (Auto) 31.7 (20-40) % [place] % (Auto) 5.5 (2-11) % Eos % (Auto) 0.8 (0-4) % Baso % (Auto) 0.1 (0-2) % Lymph # (Auto) 2.3 (1.2-4.9) X10*3/uL [place] # (Auto) 0.4 (0.1-1.2) X10*3/uL Eos # (Auto) 0.1 (0.0-0.4) X10*3/uL Baso # (Auto) 0.0 (0.0-0.2) X10*3/uL Abs Immat Gran (auto) 0.01 (0.00-0.03) X10*3/uL Absolute Neuts (auto) 4.6 (2.0-8.3) x10*3/uL Absolute Nucleated RBC 0.000 (0.0-0.012) X10*3/uL Nucleated RBC % (auto) 0.0 (0.0-0.2) /100WBC Sodium 139 (135-145) mmol/L Potassium 3.5 (3.3-5.1) mmol/L Chloride 108 (96-108) mmol/L Carbon Dioxide 24 (22-29) mmol/L Anion Gap 11 L (12-20) BUN 16 (9-16) mg/dL Creatinine 0.78 (0.5-1.4) mg/dL Estim Creat Clear Calc 73.8 Estimated GFR > 60 Random Glucose 94 (60-115) mg/dL Calcium 9.4 (8.4-10.2) mg/dL Magnesium 2.1 (1.6-2.6) mg/dL Total Bilirubin 0.8 (0.0-1.0) mg/dL Direct Bilirubin 0.3 (0.0-0.5) mg/dL AST 18 (5-31) U/L ALT 20 (0-31) U/L Alkaline Phosphatase 61 (39-117) U/L Total Protein 7.2 (6.5-8.0) g/dL Albumin 4.2 (3.5-5.0) g/dL ECG Data Attestation: I personally reviewed and interpreted this ECG as follows: Prior ECG tracings: available for review Interpretation: Normal sinus rhythm, heart rate 70 beats per minute, normal FL interval, normal QTC, no ST segment elevations or depressions. No change from prior. Discharge Plan Discharge Clinical Impression: COVID-19 Diarrhea Qualifiers: Diarrhea type: unspecified type Qualified Code(s): R19.7 - Diarrhea, unspecifi ed Patient Disposition: Home, Self-Care Instructions: Covid-19 Viral Syndrome and Novel Coronavirus (ED) Hey/Ath Additional Instructions: Your lab workup today was normal. Your chest x-ray was clear & your EKG was normal. Recommend taking Imodium every 4-6 hours as needed for diarrhea and loose stool. You can also try Pepto Bismol for upset stomach and diarrhea. Rest and drink plenty of fluids. Stick to a bland diet while you are not feeling well. Do not go to work while you are symptomatic and not feeling well, despite having negative COVID/Flu/RSV test today. Follow up with your doctor. If you develop new or worsening symptoms call 911 or come back to the ER for further evaluation. Prescriptions: No Action albuterol sulfate 2.5 mg /3 mL (0.083 %) solution for nebulization 1 unit inhalation Q6H PRN (Reason: respiratory symptoms) RF: 0 levetiracetam 500 mg tablet 1 tab PO BID RF: 0 epinephrine 0.3 mg/0.3 mL auto-injector 1 device IM DIRECTED RF: 0 fluticasone propion-salmeterol 232-14 mcg/actuation aerosol powdr breath activated inhalation Q12H RF: 0 cetirizine 10 mg tablet 10 mg PO DAILY PRNRF: 0 albuterol sulfate 90 mcg/actuation HFA aerosol inhaler 1 inh inhalation QID PRN (Reason: shortness of breath or wheezing) Qty: 8.5 RF: 0 albuterol sulfate 0.63 mg/3 mL solution for nebulization 0.63 mg inhalation QID PRN (Reason: shortness of breath or wheezing) Qty: 75 RF: 0 lisinopril 2.5 mg tablet 2.5 mg PO DAILY RF: 0 Stand Alone Forms: Work/School Release
[2021-08-02 22:18] LABS: MANUAL DIFF FLAG NO
[2021-08-02 22:27] LABS: Basophils Percent Auto 0.1 % (0-2); Eosinophils Absolute Auto 0.1 X10*3/uL (0.0-0.4); Eosinophils Percent Auto 0.8 % (0-4); Hematocrit 36.3 % (37.0-47.0); Hemoglobin 12.6 g/dl (12.0-16.0); Imm Gran Abs Auto 0.01 X10*3/uL (0.00-0.03); Imm Gran Pct Auto 0.1 % (0.0-0.4); Lymphocytes Absolute Auto 2.3 X10*3/uL (1.2-4.9); Lymphocytes Percent Auto 31.7 % (20-40); Mean Corpuscular HGB Conc 34.7 g/dl (31.0-35.0); Mean Corpuscular Volume 89.4 fL (80.0-98.0); Mean Platelet Volume 9.3 fL (9.4-12.3); Monocytes Absolute Auto 0.4 X10*3/uL (0.1-1.2); Monocytes Percent Auto 5.5 % (2-11); Neutrophils Absolute Auto 4.6 x10*3/uL (2.0-8.3); Neutrophils Percent Auto 61.8 % (45-73); Platelet Count 222 X10*3/uL (160-400); Red Blood Count 4.06 X10*6/uL (4.20-5.50); Red Cell Distribution Width 11.4 % (11.0-16.0); White Blood Count 7.4 X10*3/uL (4.8-10.8)
[2021-08-02 22:33] LABS: Alanine Aminotransferase 20 U/L (0-31); Albumin Level 4.2 g/dL (3.5-5.0); Alkaline Phosphatase 61 U/L (39-117); Anion Gap 11 (12-20); Aspartate Amino Transferase 18 U/L (5-31); Bilirubin Direct 0.3 mg/dL (0.0-0.5); Bilirubin Total 0.8 mg/dL (0.0-1.0); Blood Urea Nitrogen 16 mg/dL (9-16); Calcium 9.4 mg/dL (8.4-10.2); Carbon Dioxide 24 mmol/L (22-29); Chloride 108 mmol/L (96-108); Creatinine Clr Calc Pharmacy 73.8; Estimated Glomerular Filt Rate > 60; Glucose Random 94 mg/dL (60-115); Magnesium 2.1 mg/dL (1.6-2.6); Potassium 3.5 mmol/L (3.3-5.1); Sodium 139 mmol/L (135-145); Total Protein 7.2 g/dL (6.5-8.0)
[2021-08-02 23:24] VITALS: BP 130/93; PULSE 68; RESP 16; O2SAT 98
== END 2021-08-03 00:03 | disposition home or self-care (01) ==
PROVIDERS: Physician Assistant; Emergency Provider Student in an Organized Health Care Education/Training Program
DX: U07.1 COVID-19 (principal); R19.7 Diarrhea, unspecified; I10 Essential (primary) hypertension; J44.9 Chronic obstructive pulmonary disease, unspecified
CPT/HCPCS: 36415; 71045; 80048; 80076; 83735; 85025; 93005; 99283; 99284

== ENCOUNTER 2021-11-11 21:28 | Emergency (ER) | payer OTHER, SELFPAY ==
[2021-11-11 21:37] VITALS: BP 152/91; PULSE 80; RESP 16; TEMP 36.9; O2SAT 97; BMI 22.6
--- NOTE | 2021-11-11 22:05 | ED_ITS ---
HPI - General Adult General Chief complaint: General Medical Stated complaint: right eye red,ear ache Source: patient Mode of arrival: ambulatory Limitations: no limitations History of Present Illness HPI narrative: 36-year-old female presents with upper respiratory symptoms and right eye drainage consistent with conjunctivitis. States that everyone that she works with is ill. Onset (ago): day(s) (3) Location: mouth, eyes and chest Radiation: non-radiation Severity: moderate Severity scale (1-10): 6 Quality: burning, aching and constant Pain Consistency: constant Relieving factors: none Exacerbating factors: eating and movement Associated symptoms: chest pain, fever/chills and malaise Treatments prior to arrival: none Related Data Home Medications Medication Instructions Recorded Confirmed albuterol sulfate 1 unit INHALATION Q6H PRN 06/25/20 04/19/21 epinephrine 0.3 mg/0.3 mL 1 device IM DIRECTED 06/25/20 04/19/21 injection, auto-injector fluticasone 232 mcg-salmeterol 14 drp INHALATION Q12H 06/25/20 04/19/21 mcg/actuation breath activated powdr levetiracetam 500 mg tablet 1 tab PO BID 06/25/20 04/19/21 cetirizine 10 mg tablet 10 mg PO DAILY PRN 10/19/20 04/19/21 lisinopril 2.5 mg tablet 2.5 mg PO DAILY 10/19/20 04/19/21 Previous Rx's Medication Instructions Recorded albuterol sulfate 0.63 mg/3 mL 0.63 mg (3 mL) INHALATION QID PRN 08/22/20 solution for nebulization #75 ml albuterol sulfate 90 mcg/actuation 1 inh INHALATION QID PRN #8.5 g 08/22/20 aerosol inhaler amoxicillin 875 mg-potassium 1 tab PO Q12H 10 Days #20 tab 11/11/21 clavulanate 125 mg tablet erythromycin 5 mg/gram (0.5 %) eye 1 appl OPHTHALMIC-RIGHT Q4H 5 Days 11/11/21 ointment #1 g Allergies Allergy/AdvReac Type Severity Reaction Status Date / Time animal dander Allergy Itching Verified 04/19/21 09:00 house dust Allergy Watery Eye Verified 04/19/21 09:00 seafood Allergy Hives Verified 04/19/21 09:00 methylprednisolone AdvReac Seizure Verified 04/19/21 09:00 prednisone AdvReac numbness Verified 04/19/21 09:00 Seafood Allergy Mild ITCHING Uncoded 08/23/20 12:27 Fruit Allergy Hives Uncoded 08/23/20 12:27 Review of Systems Review of Systems: Constitutional: Positive Fever, positive Chills ENT/Mouth: No Ear Pain, No Hoarseness, positive sore throat Eyes: No Eye Pain, No Swelling, positive Redness, No Foreign Body Cardiovascular: No Chest Pain, No SOB Respiratory: Positive Cough, No Dyspnea Gastrointestinal: No Nausea, No Vomiting, No Diarrhea, No abdominal Pain Genitourinary: No Dysuria, No Hematuria Musculoskeletal: No joint pain, No Myalgias, No Joint Swelling Skin: No Skin lacerations, No rash Neuro: No Weakness, No Numbness, No Paresthesias, No Loss of Consciousness, No Dizziness, positive Headache Psych: No Anxiety/Panic, No Depression Heme/Lymph: no easy bruising, no Lymphadenopathy Endocrine: No Polyuria, No Polydipsia Yes all other systems are reviewed and are negative [facility] Past Medical History Attestation statement: The following information was validated with the patient. Source: old records reviewed Medical History Asthma COPD (chronic obstructive pulmonary disease) Hypertension Seizures Surgical History History of cholecystectomy History of hysterectomy History of tubal ligation Family History Family History Mother Diabetes HTN (hypertension) Dementia Father HTN (hypertension) Maternal Uncle Heart disease Family/Other Cancer Lung cancer Stomach cancer Social History Social History Alcohol intake: never Substance Use Type: Marijuana Advance Directives: No Advance Directives Information Provided: No Physical Exam ED Vital Signs: Vital Signs - 24 hr 11/11/21 21:37 Temperature 98.5 F Pulse Rate 80 Respiratory Rate 16 Blood Pressure 152/91 H Pulse Oximetry 97 BMI result Body Mass Index 22.6 Appearance: Alert. Oriented X3. No acute distress. Eyes: Pupils equal, round and reactive to light. Thick Yellow drainage noted from the right eye ENT: Pharynx erythematous, left ear erythematous tympanic membrane. Right tympanic membrane normal. Neck: Normal inspection. Neck supple. Posterior cervical lymphadenopathy noted. No mastoid tenderness noted. CVS: Normal heart rate and rhythm. Pulses normal. Respiratory: No respiratory distress. Breath sounds normal. Abdomen: Soft and nontender. Skin: Skin warm and dry. Normal skin color. Normal skin turgor. Extremities: No lower extremity edema. Gait well-balanced well coordinated. Neuro: No motor deficit. No sensory deficit. Cranial nerves 2-12 intact. Course Course Course Narrative: 36-year-old female presents with upper respiratory symptoms and yellow goopy drainage from her right eye. Eye exam is consistent with conjunctivitis. Pharynx is erythematous with the left tympanic membrane erythematous and bul ging. Will treat with Augmentin for otitis media. Will give erythromycin for conjunctivitis. Patient verbalized understanding of and agrees to plan of care to discharge home. Verbalized understanding of signs and symptoms indicating need for emergent intervention Medical Decision Making Differential Diagnosis Differential Diagnosis: Conjunctivitis, URI, pharyngitis, otitis media, influenza Medical Records Medical records reviewed: Yes I reviewed the patient's medical records. Lab Data Lab results reviewed: Yes I reviewed the patient's lab results. Labs: Lab Results 11/11/21 Range/Units 22:22 Influenza Type A (PCR) NEGATIVE (Negative) Influenza Type B (PCR) NEGATIVE (Negative) RSV RNA Qual (PCR) NEGATIVE (Negative) SARS-CoV-2 RNA (RT-PCR) NEGATIVE (Negative) Discharge Plan Discharge Clinical Impression: Conjunctivitis, Otitis media, Pharyngitis Patient Disposition: Home, Self-Care Instructions: Pharyngitis (ED), Ear Infection (ED), Conjunctivitis (ED) Additional Instructions: You were evaluated for upper respiratory symptoms. We are treating you for conjunctivitis with erythromycin eye ointment. Please use this ointment every 4 hours while awake. Wash her hands before and after applying this ointment. For otitis media and pharyngitis please take Augmentin twice a day for the next 10 days. Follow-up with primary care physician. Thank you for choosing this emergency department for evaluation. Please follow-up with primary care physician as needed. Return to the emergency department for any new, concerning, or worsening symptoms. Prescriptions: New erythromycin 5 mg/gram (0.5 %) ointment 1 appl ophthalmic-Right Q4H 5 Days Qty: 1 0RF amoxicillin-pot clavulanate 875-125 mg tablet 1 tab PO Q12H 10 Days Qty: 20 0RF No Action albuterol sulfate 2.5 mg /3 mL (0.083 %) solution for nebulization 1 unit inhalation Q6H PRN (Reason: respiratory symptoms) 0RF levetiracetam 500 mg tablet 1 tab PO BID 0RF epinephrine 0.3 mg/0.3 mL auto-injector 1 device IM DIRECTED 0RF fluticasone propion-salmeterol 232-14 mcg/actuation aerosol powdr breath activated inhalation Q12H 0RF cetirizine 10 mg tablet 10 mg PO DAILY PRN0RF albuterol sulfate 90 mcg/actuation HFA aerosol inhaler 1 inh inhalation QID PRN (Reason: shortness of breath or wheezing) Qty: 8.5 0RF albuterol sulfate 0.63 mg/3 mL solution for nebulization 0.63 mg inhalation QID PRN (Reason: shortness of breath or wheezing) Qty: 75 0RF lisinopril 2.5 mg tablet 2.5 mg PO DAILY 0RF Stand Alone Forms: Work/School Release
[2021-11-11 23:08] LABS: Influenza A PCR NEGATIVE (Negative); Influenza B PCR NEGATIVE (Negative); Resp Syncy Virus RNA Qual PCR NEGATIVE (Negative); SARS COV2 PCR INHOUSE NEGATIVE (Negative)
[2021-11-11] MEDS: Erythromycin Base 0.5% Oph Oin 1 GM TUBE 1 CM EYE-RIGHT (23:34)
[2021-11-11] MEDS: Amoxicillin/Potassium Clav 875 MG TABLET PO (23:34)
== END 2021-11-12 00:08 | disposition home or self-care (01) ==
PROVIDERS: Nurse Practitioner Family; Emergency Provider Emergency Medicine Emergency Medical Services
DX: H66.92 Otitis media, unspecified, left ear (principal); H10.9 Unspecified conjunctivitis; J02.9 Acute pharyngitis, unspecified; J44.9 Chronic obstructive pulmonary disease, unspecified; I10 Essential (primary) hypertension; Z20.822 Contact with and (suspected) exposure to COVID-19
CPT/HCPCS: 0241U; 99283; 99284

== ENCOUNTER → 2021-12-07 14:39 | Outpatient (BNVA) | payer OTHER, SELFPAY | PROVIDERS: Visit Provider Nurse Practitioner Family | DX: R07.9 Chest pain, unspecified (principal); I10 Essential (primary) hypertension | CPT/HCPCS: 99212 ==

== ENCOUNTER 2022-02-06 13:35 | Emergency (ER) | payer OTHER, SELFPAY ==
[2022-02-06 13:53] VITALS: BP 134/89; PULSE 75; RESP 18; TEMP 36.6; O2SAT 96; BMI 23.6
--- NOTE | 2022-02-06 17:50 | ED_ITS ---
HPI - Allergic Reaction General Chief complaint: Allergic Reaction Stated complaint: Hives Rash Time Seen by Provider: 02/06/22 17:28 Source: patient Mode of arrival: ambulatory Limitations: no limitations History of Present Illness HPI narrative: 36-year-old female who has multiple allergies presents with hives to her body since last night which occurred while she was at work. Patient took several doses of Benadryl with continued hives. She denies any difficulty breathing, difficulty swallowing, vomiting, abdominal pain or cramping, diarrhea. 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 She cant take prednisone or Solu-Medrol due to allergy Related Data Home Medications Medication Instructions Recorded Confirmed albuterol sulfate 1 unit inhalation Q6H PRN 06/25/20 12/07/21 respiratory symptoms epinephrine 0.3 mg/0.3 mL 1 device IM DIRECTED 06/25/20 12/07/21 injection, auto-injector fluticasone 232 mcg-salmeterol 14 drp inhalation Q12H 06/25/20 12/07/21 mcg/actuation breath activated powdr levetiracetam 500 mg tablet 1 tab PO BID 06/25/20 12/07/21 cetirizine 10 mg tablet 10 mg PO DAILY PRN 10/19/20 12/07/21 lisinopril 2.5 mg tablet 2.5 mg PO DAILY 10/19/20 12/07/21 omalizumab 150 mg subcutaneous 0 mg subcut 12/07/21 12/07/21 solution (Xolair) Previous Rx's Medication Instructions Recorded albuterol sulfate 0.63 mg/3 mL 0.63 mg (3 mL) inhalation QID PRN 08/22/20 solution for nebulization shortness of breath or wheezing #75 mL albuterol sulfate 90 mcg/actuation 1 inh inhalation QID PRN shortness 08/22/20 aerosol inhaler of breath or wheezing #8.5 grams Allergies Allergy/AdvReac Type Severity Reaction Status Date / Time animal dander Allergy Itching Verified 04/19/21 09:00 house dust Allergy Watery Eye Verified 04/19/21 09:00 seafood Allergy Hives Verified 04/19/21 09:00 methylprednisolone AdvReac Seizure Verified 04/19/21 09:00 prednisone AdvReac numbness Verified 04/19/21 09:00 Seafood Allergy Mild ITCHING Uncoded 08/23/20 12:27 Fruit Allergy Hives Uncoded 08/23/20 12:27 Review of Systems Review of Systems: Yes all other systems are reviewed and are negative Constitutional: Constitutional: Reports no additional constitutional complaints, Denies body ache(s), Denies chills, Denies fever(s), Denies headache(s) and Denies weakness Eyes: Eyes: Reports no additional eye complaints and Denies change in vision ENT: Reports system reviewed and no additional complaints, except as documen ganesh, Denies dizziness, Denies headache(s), Denies nasal congestion, Denies nasal discharge and Denies neck pain Cardiovascular: Cardiovascular: Reports no additional cardiovascular complaints, Denies chest pain, Denies leg edema and Denies dyspnea Respiratory: Respiratory: Reports no additional respiratory complaints, Denies cough and Denies dyspnea Gastrointestinal: Gastrointestinal: Reports no additional gastrointestinal complaints, Denies abdominal pain, Denies diarrhea, Denies nausea and Denies vomiting Genitourinary: Genitourinary: Reports no additional female genitourinary complaints and Denies urinary incontinence Musculoskeletal: Musculoskeletal: Reports no additional musculoskeletal complaints, Denies back pain, Denies arthralgias, Denies joint swelling, Denies neck pain, Denies numbness and Denies tingling Integumentary/Breasts: Skin/Breast: Reports system reviewed and no additional complaints, except as docu and Reports rash Neurologic: Reports system reviewed and no additional complaints, except as documented, Denies dizziness, Denies headache(s), Denies numbness, Denies tingling and Denies weakness PMFSH Past Medical History Attestation statement: The following information was validated with the patient. Source: old records reviewed and nursing notes reviewed Medical History Asthma COPD (chronic obstructive pulmonary disease) Hypertension Seizures Surgical History History of cholecystectomy History of hysterectomy History of tubal ligation Family History Family History Mother Diabetes HTN (hypertension) Dementia Father HTN (hypertension) Maternal Uncle Heart disease Family/Other Cancer Lung cancer Stomach cancer Social History Social History Alcohol intake: never Substance Use Type: Marijuana Advance Directives: No Advance Directives Information Provided: Yes Physical Exam ED Vital Signs: Vital Signs - 24 hr 02/06/22 13:53 Temperature 98 F Pulse Rate 75 Respiratory Rate 18 Blood Pressure 134/89 Pulse Oximetry 96 Oxygen Delivery Method Room Air BMI result Body Mass Index 23.6 Appearance: Alert. Oriented X3. No acute distress. Eyes: Pupils equal, round and reactive to light. Thick Yellow drainage noted from the right eye ENT: Pharynx erythematous, left ear erythematous tympanic membrane. Right tympanic membrane normal. Neck: Normal inspection. Neck supple. Posterior cervical lymphadenopathy noted. No mastoid tenderness noted. CVS: Normal heart rate and rhythm. Pulses normal. Respiratory: No respiratory distress. Breath sounds normal. Abdomen: Soft and nontender. Skin: Skin warm and dry. Normal skin color. Normal skin turgor. Extremities: No lower extremity edema. Gait well-balanced well coordinated. Neuro: No motor deficit. No sensory deficit. Cranial nerves 2-12 intact. Const General: cooperative, healthy appearing, comfortable and no acute distress Orientation/consciousness: patient oriented x3 Limitations: no limitations [facility] Head: Yes normal to inspection Ears: hearing grossly normal bilaterally General nose exam: Normal external nose present Face and sinus: Yes normal facial exam Mouth: Normal oral and palatal mucosa present, lip normal and tongue normal Throat: Yes posterior oropharynx normal, Yes tonsils normal and Yes uvula midline Eyes General: appearance normal, both eyes and all related structures Pupils: Equal, round and reactive pupils present Neck Neck: Yes normal visual inspection, Yes full ROM, Yes no lymphadenopathy and Yes no meningeal signs Chest Chest palpation & inspection: normal inspection of the chest Resp Effort & Inspection: normal respiratory effort Auscultation: clear to auscultation bilaterally Cardio Rate: regular rate Rhythm: regular rhythm Peripheral pulses: Peripheral pulses 2+ throughout GI Inspection: Yes normal to inspection Palpation (GI): Soft to palpation and nontender Back/Spine/Pelvis Thoracic/Lumbar Spine: thoracic and lumbar spine normal to inspection Skin Other: Urticarial lesions noted over the upper extremities and back 1 lesion on the left thigh No lesions elsewhere General skin exam: no rashes or lesions noted Neuro General: patient oriented x3, moves all extremities and no meningeal signs Cranial nerves: Yes Equal, round and reactive pupils present Extrem General: Yes normal to inspection, Yes no pedal edema and Yes no calf tenderness MDM - Allergic Reaction MDM Narrative Medical decision making narrative: 36-year-old female here with high since last night from an unknown cause. Took Benadryl with continued hives. Patient has approximately 5-7 lesions total. There is no airway involvement. Her lungs are clear. Her vitals are stable. She has Benadryl at home. Recommended she add Claritin and follow up with her perinatal instructor Patient cant take prednisone or Solu-Medrol did allergy Medical Records Attestation: I reviewed the patient's medical records. Lab Data Attestation: I reviewed the patient's lab results. Discharge Plan Discharge Clinical Impression: Urticaria Patient Disposition: Home, Self-Care Instructions: Urticaria (ED), Acute Rash (ED) Additional Instructions: Continue Benadryl as needed Start taking Claritin 10 mg daily Follow-up with your perinatal instructor Return for difficulty breathing, difficulty swallowing Prescriptions: No Action albuterol sulfate 2.5 mg /3 mL (0.083 %) solution for nebulization 1 unit inhalation Q6H PRN (Reason: respiratory symptoms) levetiracetam 500 mg tablet 1 tab PO BID epinephrine 0.3 mg/0.3 mL auto-injector 1 device IM DIRECTED fluticasone propion-salmeterol 232-14 mcg/actuation aerosol powdr breath activated inhalation Q12H cetirizine 10 mg tablet 10 mg PO DAILY PRN albuterol sulfate 90 mcg/actuation HFA aerosol inhaler 1 inh inhalation QID PRN (Reason: shortness of breath or wheezing) Qty: 8.5 0RF albuterol sulfate 0.63 mg/3 mL solution for nebulization 0.63 mg inhalation QID PRN (Reason: shortness of breath or wheezing) Qty: 75 0RF lisinopril 2.5 mg tablet 2.5 mg PO DAILY Xolair 150 mg recon soln 0 mg subcut Referrals: Physician,Unknown J [Primary Care Provider] -
== END 2022-02-06 18:27 | disposition home or self-care (01) ==
PROVIDERS: Emergency Provider Emergency Medicine
DX: L50.0 Allergic urticaria (principal)
CPT/HCPCS: 99282; 99283

== ENCOUNTER 2022-06-27 12:59 | Emergency (ER) | payer OTHER, SELFPAY ==
--- NOTE | 2022-06-27 15:41 | PC.NURSE ---
Pt called for triage, pt not in waiting room.
--- NOTE | 2022-06-27 16:52 | PC.NURSE ---
Pt called for triage no answer. Pt not in waiting room.
== END 2022-06-27 18:39 | disposition left against medical advice (07) ==
LOC: HO.ED 18:31
PROVIDERS: Emergency Provider Emergency Medicine
DX: M79.89 Other specified soft tissue disorders (principal); I10 Essential (primary) hypertension

== ENCOUNTER → 2023-01-16 12:48 | Outpatient (BNVA) | payer OTHER, SELFPAY | PROVIDERS: Visit Provider Internal Medicine Cardiovascular Disease | DX: I10 Essential (primary) hypertension (principal); Z79.899 Other long term (current) drug therapy | CPT/HCPCS: 93005; 99212 ==

== ENCOUNTER 2023-03-13 23:06 | Emergency (ER) | payer SELFPAY ==
--- NOTE | ~2023-03-13 | CT_ITS ---
EXAMINATION: CT ABDOMEN AND PELVIS WITH CONTRAST CLINICAL INFORMATION: Abdominal pain COMPARISON: None available. TECHNIQUE: Multidetector volumetric images were obtained from the superior aspect of the liver through the pubic symphysis following administration 85 mL of Omnipaque 350 intravenous contrast. Sagittal and coronal reformatted images were obtained on the technologist's workstation. Oral contrast: No This CT examination was performed using dose optimization techniques as appropriate, variously including the following: *Automated exposure control *Adjustment of mA and/or kV according to patient size (this includes techniques or standardized protocols for targeted exams where dose is matched to indication/reason for exam; i.e. extremities or head) *Use of iterative reconstruction technique DLP: 354 mGy-cm FINDINGS: LUNG BASES: The visualized lung bases are unremarkable. LIVER, GALLBLADDER, AND BILIARY TREE: The liver is normal in size and attenuation. Mild intrahepatic and extrahepatic biliary ductal dilatation is present, likely on the basis of prior cholecystectomy. There are multiple surgical clips in the chase hepatis. A tiny low-density lesion in the posterior segment of the right hepatic lobe, segment 7 is too small to characterize but likely a cyst. PANCREAS: Unremarkable. SPLEEN: Unremarkable. ADRENAL GLANDS: Unremarkable. KIDNEYS AND URETERS: The kidneys are normal in size, shape, and attenuation. No hydronephrosis, hydroureter, or calculi seen. No perinephric stranding. BLADDER: Unremarkable. GASTROINTESTINAL TRACT: Mild diverticulosis of the sigmoid is present, without diverticulitis. Otherwise, the small and large bowel are unremarkable. The appendix is unremarkable. ABDOMINAL WALL: No significant hernia is appreciated. LYMPH NODES: Normal. VASCULAR: Unremarkable. PELVIC VISCERA: Unremarkable. OSSEOUS STRUCTURES: Mild thoracolumbar scoliosis, convex right in the thoracic spine and left in the lumbar spine. CT/CT abdomen pelvis w IV con IMPRESSION: 1. No acute findings in the abdomen or pelvis. 2. Mild intrahepatic and extrahepatic biliary ductal dilatation, likely on the basis of prior cholecystectomy. 3. Mild sigmoid diverticulosis without diverticulitis. Fleischner guidelines were followed.
[2023-03-13 23:31] VITALS: BP 148/105; PULSE 67; RESP 17; TEMP 37.1; O2SAT 100; BMI 23.0
--- NOTE | 2023-03-14 00:06 | MHC.EDTECH ---
PATIENT BLOOD DRAWN AND SENT TO LAB .
--- NOTE | 2023-03-14 00:06 | MHC.EDTECH ---
Urine collected and sent to lab.
[2023-03-14 00:07] LABS: MANUAL DIFF FLAG NO
[2023-03-14 00:10] LABS: Basophils Percent Auto 0.3 % (0-2); Eosinophils Percent Auto 0.8 % (0-4); Hematocrit 39.1 % (37.0-47.0); Hemoglobin 13.5 g/dl (12.0-16.0); Imm Gran Abs Auto 0.01 X10*3/uL (0.00-0.03); Imm Gran Pct Auto 0.3 % (0.0-0.4); Lymphocytes Absolute Auto 1.6 X10*3/uL (1.2-4.9); Lymphocytes Percent Auto 43.2 % (20-40); Mean Corpuscular HGB Conc 34.5 g/dl (31.0-35.0); Mean Corpuscular Hemoglobin 30.9 pg (27.0-33.0); Mean Corpuscular Volume 89.5 fL (80.0-98.0); Mean Platelet Volume 9.4 fL (9.4-12.3); Monocytes Absolute Auto 0.3 X10*3/uL (0.1-1.2); Monocytes Percent Auto 9.2 % (2-11); Neutrophils Absolute Auto 1.7 x10*3/uL (2.0-8.3); Neutrophils Percent Auto 46.2 % (45-73); Platelet Count 158 X10*3/uL (160-400); Red Blood Count 4.37 X10*6/uL (4.20-5.50); Red Cell Distribution Width 11.5 % (11.0-16.0); White Blood Count 3.6 X10*3/uL (4.8-10.8)
[2023-03-14 00:11] LABS: Appearance Urine Clear; Color Urine Yellow; Glucose Urine UA Negative (Negative); Leukocyte Esterase Urine Negative (Negative); Nitrite Urine Negative (Negative); PH 7.5 (5.0-9.0); Specific Gravity - Urine 1.025 (1.005-1.025); Urine Blood Negative (Negative); Urine Ketones Trace mg/dL (Negative); Urine Protein Trace mg/dL (Neg-Trace)
[2023-03-14 00:15] LABS: Bacteria Urine None Seen (None Seen); Hyaline Casts Urine 0-2 /LPF (0-2); RBC Urine 0-2 /HPF (0-2); WBC Urine 0-5 /HPF (0-5)
[2023-03-14 01:11] LABS: Alanine Aminotransferase 44 U/L (0-31); Albumin Level 4.3 g/dL (3.5-5.0); Alkaline Phosphatase 59 U/L (39-117); Anion Gap 9 (12-20); Aspartate Amino Transferase 46 U/L (5-31); Bilirubin Direct 0.2 mg/dL (0.0-0.5); Bilirubin Total 0.3 mg/dL (0.0-1.0); Blood Urea Nitrogen 10 mg/dL (9-16); Calcium 9.3 mg/dL (8.4-10.2); Carbon Dioxide 29 mmol/L (22-29); Chloride 106 mmol/L (96-108); Creatinine Clr Calc Pharmacy 63.3; Estimated Glomerular Filt Rate > 60; Glucose Random 92 mg/dL (60-115); HCG Quantitative < 2 mIU/mL; Lipase 27 U/L (8-78); Potassium 3.5 mmol/L (3.3-5.1); Sodium 140 mmol/L (135-145); Total Protein 7.5 g/dL (6.5-8.0)
--- NOTE | 2023-03-14 03:30 | PC.NURSE ---
Pt sitting quietly in ED WR. No acute distress noted. Denies any needs at this time.
[2023-03-14 05:26] VITALS: BP 144/94; PULSE 84; RESP 16; TEMP 37.1; O2SAT 98
--- NOTE | 2023-03-14 07:22 | ED.GENADULT ---
HPI - General Adult General Chief complaint: General Medical Stated complaint: n/v/d, body chills Time Seen by Provider: 03/14/23 07:22 Source: patient Mode of arrival: ambulatory Limitations: no limitations History of Present Illness HPI narrative: Patient is a 37 year old assigned female at with a history of HTN, COPD, and asthma presenting to the emergency department today with abdominal pain. Patient states that she has been having abdominal pain, nausea, and vomiting over the last 3 days. Patient denies any dizziness, lightheadedness, fever, chills, blurry vision, double vision, loss of vision, chest pain, difficulty breathing, shortness of breath, back pain, night sweats, pain with urination, increased urinary frequency, increased urinary urgency, blood in her urine or stool, syncope or a near syncopal episode, recent trauma or falls, bowel incontinence, bladder incontinence, bowel retention, bladder retention, or any other complaints at this time. Onset (ago): day(s) (3) Location: abdomen Severity: mild Severity scale (1-10): 3 Quality: aching Pain Consistency: constant Relieving factors: none Exacerbating factors: none Associated symptoms: nausea/vomiting Treatments prior to arrival: none Related Data Home Medications Medication Instructions Recorded Confirmed albuterol sulfate 2.5 mg/3 mL 1 unit inhalation Q6H PRN 06/25/20 01/16/23 (0.083 %) solution for nebulization respiratory symptoms epinephrine 0.3 mg/0.3 mL 1 device IM DIRECTED 06/25/20 01/16/23 injection, auto-injector fluticasone 232 mcg-salmeterol 14 drp inhalation Q12H 06/25/20 01/16/23 mcg/actuation breath activated powdr levetiracetam 500 mg tablet 1 tab PO BID 06/25/20 01/16/23 cetirizine 10 mg tablet 10 mg PO DAILY PRN 10/19/20 01/16/23 lisinopril 2.5 mg tablet 2.5 mg PO DAILY 10/19/20 01/16/23 omalizumab 150 mg subcutaneous 0 mg subcut 12/07/21 01/16/23 solution (Xolair) Previous Rx's Medication Instructions Recorded albuterol sulfate 0.63 mg/3 mL 0.63 mg (3 mL) inhalation QID PRN 08/22/20 solution for nebulization shortness of breath or wheezing #75 mL albuterol sulfate 90 mcg/actuation 1 inh inhalation QID PRN shortness 08/22/20 aerosol inhaler of breath or wheezing #8.5 grams Allergies Allergy/AdvReac Type Severity Reaction Status Date / Time animal dander Allergy Itching Verified 03/13/23 23:31 house dust Allergy Watery Eye Verified 03/13/23 23:31 seafood Allergy Hives Verified 03/13/23 23:31 methylprednisolone AdvReac Seizure Verified 03/13/23 23:31 prednisone AdvReac numbness Verified 03/13/23 23:31 Seafood Allergy Mild ITCHING Uncoded 03/13/23 23:31 Fruit Allergy Hives Uncoded 03/13/23 23:31 Review of Systems Constitutional: Constitutional: Reports no additional constitutional complaints, Denies chills, Denies fever(s) and Denies night sweats Eyes: Eyes: Reports no additional eye complaints, Denies blurry vision, Denies change in vision, Denies diplopia, Denies eye discharge, Denies loss of vision and Denies eye pain ENT: Denies dizziness Cardiovascular: Cardiovascular: Reports no additional cardiovascular complaints, Denies chest pain, Denies lightheadedness, Denies Loss of Consciousness and Denies dyspnea Respiratory: Respiratory: Reports no additional respiratory complaints and Denies dyspnea Gastrointestinal: Gastrointestinal: Reports no additional gastrointestinal complaints, Reports abdominal pain, Denies melena, Denies hematochezia, Denies change in bowel habits, Denies change in stool character, Reports nausea and Reports vomiting Genitourinary: Genitourinary: Denies hematuria, Denies urinary frequency, Denies dysuria, Denies urinary incontinence, Denies urinary hesitancy and Denies urinary urgency Musculoskeletal: Musculoskeletal: Reports no additional musculoskeletal complaints, Denies numbness and Denies tingling Neurologic: Denies dizziness, Denies loss of vision, Denies numbness and Denies tingling Psychiatric: Psychiatric: Reports no additional psychiatric complaints Endocrine: Endocrine: Reports no additional endocrine complaints Hematologic/Lymphatic: Hematologic/Lymphatic: Reports no additional hematologic/lymphatic complaints Allergic/Immunologic: Allergic/Immunologic: Reports no additional allergic/immunologic complaints PMFSH Past Medical History Attestation statement: The following information was validated with the patient. Source: old records reviewed and nursing notes reviewed Medical History Asthma COPD (chronic obstructive pulmonary disease) Hypertension Seizures Surgical History History of cholecystectomy History of hysterectomy History of tubal ligation Family History Family History Mother Diabetes HTN (hypertension) Dementia Father HTN (hypertension) Maternal Uncle Heart disease Family/Other Cancer Lung cancer Stomach cancer Social History Social History Alcohol intake: never Substance Use Type: Marijuana Advance Directives: No Advance Directives Information Provided: No Physical Exam ED Vital Signs: Vital Signs - 24 hr 03/13/23 23:31 03/14/23 05:26 03/14/23 07:41 Temperature 98.7 F 98.7 F 98.2 F Pulse Rate 67 84 63 Respiratory Rate 17 16 20 Blood Pressure 148/105 H 144/94 H 140/100 H Pulse Oximetry 100 98 98 Oxygen Delivery Method Room Air Room Air Room Air 03/14/23 09:33 Temperature Pulse Rate 70 Respiratory Rate 18 Blood Pressure 137/95 H Pulse Oximetry 98 Oxygen Delivery Method BMI result Body Mass Index 23.0 Const General: cooperative, no acute distress, alert and awake Nutritional Appearance: well nourished Orientation/consciousness: patient oriented x3 Limitations: no limitations HENMT Head: Yes normal to inspection and Yes atraumatic Ears: hearing grossly normal bilaterally and external ears normal General nose exam: Normal external nose present, no nasal discharge noted and no epistaxis Face and sinus: Yes normal facial exam, No abrasion and No laceration Mouth: Normal oral and palatal mucosa present, no drooling and no muffled voice Eyes General: appearance normal, both eyes and all related structures Periorbital: periorbital findings normal Eyelids: Yes eyelids normal Conjunctivae: conjunctivae normal Pupils: Equal, round and reactive pupils present EOM: EOMs intact bilaterally Neck Neck: Yes normal visual inspection, Yes full ROM and Yes no lymphadenopathy Chest Chest palpation & inspection: normal inspection of the chest Resp Effort & Inspection: normal respiratory effort and able to speak in complete sentences Auscultation: clear to auscultation bilaterally Cardio Rate: regular rate Rhythm: regular rhythm GI Inspection: Yes normal to inspection Palpation (GI): Soft to palpation, not firm, nontender and no guarding Neuro General: patient oriented x3 and moves all extremities Cranial nerves: Yes Equal, round and reactive pupils present Cognition (Neuro): normal cognition Motor exam (neuro): 5/5 motor strength present throughout Sensory Exam: Normal double simultaneous stimulation for sensation Coordination: [id number] test normal Extrem General: Yes normal to inspection, Yes full ROM and Yes capillary refill normal Psych Appearance: grossly normal Mental Status: mental status grossly normal Affect: normal affect Attitude: cooperative Thought process: Normal thought process present Thought content: Normal thought content present Insight: Good insight present (Psych) Medications Administered Discontinued Medications Generic Name Dose Route Start Last Admin Trade Name Freq PRN Reason Stop Dose Admin Al Hydroxide/Mg Hydroxide 15 ml 03/14/23 07:36 03/14/23 07:51 Magnesium Hydrox/Alum Hydrox 30 Ml Oral.Susp PO 03/14/23 07:37 15 ml ONCE ONE Administration Sodium Chloride 1,000 mls @ 999 mls/hr 03/14/23 07:45 03/14/23 07:51 Ns IV 03/14/23 08:45 999 mls/hr .Q1H1M SIDDHARTHA Administration Iohexol 100 ml 03/14/23 08:36 03/14/23 08:36 Iohexol 350 Mg/Ml 100 Ml Infus..Btl IV 03/14/23 08:37 85 ml ONCE ONE Administration Ondansetron HCl 4 mg 03/14/23 07:36 03/14/23 07:52 Ondansetron Hcl 4 Mg/2 Ml Vial IVPUSH 03/14/23 07:37 4 mg ONCE ONE Administration Pantoprazole Sodium 40 mg 03/14/23 07:36 03/14/23 07:51 Pantoprazole Sodium 40 Mg/10 Ml Vial IVPUSH 03/14/23 07:37 40 mg ONCE ONE Administration Medical Decision Making Medical Decision Making MDM Narrative: Patient is a 37 year old assigned female at with a history of COPD, asthma, and HTN presenting to the emergency department today with abdominal pain. Patient's physical exam was unremarkable. Patient's blood work was unremarkable. Patient's urine showed no acute process. Patient's CT abdomen/pelvis showed no acute process. I explained my physical exam findings as well as all test results to the patient. I answered all questions asked by the patient. I stressed the importance of the patient taking her medication as prescribed. I stressed the importance of the patient following up with her primary care provider and a GI provider. I stressed the importance of the patient returning to the emergency department immediately if her symptoms were to worsen or if she were to develop any dizziness, shortness of breath, difficulty breathing, chest pain, blurry vision, loss of vision, nausea, vomiting, abdominal pain, fever, chills, back pain, or any other complaints. Patient verbalized agreement and understanding with this treatment plan and discharge. Differential Diagnosis Differential Diagnoses: The differential diagnosis associated with the presentation includes Abdominal pain Nausea Vomiting Gastroenteritis Gastritis Peptic ulcer Admission/Observation Consideration of admission/observation: Escalation of care including admission/observation considered Patient would have been admitted to the hospital had her work up had any findings where hospital admission was appropriate and her clinical presentation warranted hospital admission. Lab Data MDM Lab Attestation statement: I reviewed the patient's lab results. My interpretation of these studies and their corresponding values is that they are grossly normal. 03/14/23 00:03 03/14/23 00:03 Labs: Lab Results 03/14/23 03/14/23 03/14/23 Range/Units 00:02 00:03 00:03 WBC 3.6 L (4.8-10.8) X10*3/uL RBC 4.37 (4.20-5.50) X10*6/uL Hgb 13.5 (12.0-16.0) g/dl Hct 39.1 (37.0-47.0) % MCV 89.5 (80.0-98.0) fL MCH 30.9 (27.0-33.0) pg MCHC 34.5 (31.0-35.0) g/dl RDW 11.5 (11.0-16.0) % Plt Count 158 L D (160-400) X10*3/uL MPV 9.4 (9.4-12.3) fL Immature Gran % (Auto) 0.3 (0.0-0.4) % Neut % (Auto) 46.2 (45-73) % Lymph % (Auto) 43.2 H (20-40) % [place] % (Auto) 9.2 (2-11) % Eos % (Auto) 0.8 (0-4) % Baso % (Auto) 0.3 (0-2) % Lymph # (Auto) 1.6 (1.2-4.9) X10*3/uL [place] # (Auto) 0.3 (0.1-1.2) X10*3/uL Eos # (Auto) 0.0 (0.0-0.4) X10*3/uL Baso # (Auto) 0.0 (0.0-0.2) X10*3/uL Abs Immat Gran (auto) 0.01 (0.00-0.03) X10*3/uL Absolute Neuts (auto) 1.7 L (2.0-8.3) x10*3/uL Absolute Nucleated RBC 0.000 (0.0-0.012) X10*3/uL Nucleated RBC % (auto) 0.0 (0.0-0.2) /100WBC Sodium 140 (135-145) mmol/L Potassium 3.5 (3.3-5.1) mmol/L Chloride 106 (96-108) mmol/L Carbon Dioxide 29 (22-29) mmol/L Anion Gap 9 L (12-20) BUN 10 (9-16) mg/dL Creatinine 0.90 (0.5-1.4) mg/dL Estim Creat Clear Calc 63.3 Estimated GFR > 60 Random Glucose 92 (60-115) mg/dL Calcium 9.3 (8.4-10.2) mg/dL Total Bilirubin 0.3 (0.0-1.0) mg/dL Direct Bilirubin 0.2 (0.0-0.5) mg/dL AST 46 H (5-31) U/L ALT 44 H (0-31) U/L Alkaline Phosphatase 59 (39-117) U/L Total Protein 7.5 (6.5-8.0) g/dL Albumin 4.3 (3.5-5.0) g/dL Lipase 27 (8-78) U/L Beta HCG, Quant < 2 mIU/mL Urine Color Yellow Urine Appearance Clear Urine pH 7.5 (5.0-9.0) Ur Specific [place] 1.025 (1.005-1.025) Urine Protein Trace (Neg-Trace) mg/dL Urine Glucose (UA) Negative (Negative) mg/dL Urine Ketones Trace (Negative) mg/dL Urine Blood Negative (Negative) Urine Nitrite Negative (Negative) Ur Leukocyte Esterase Negative (Negative) Urine RBC 0-2 (0-2) /HPF Urine WBC 0-5 (0-5) /HPF Ur Squamous Epith Cells 3-5 (0-2) /HPF Urine Bacteria None Seen (None Seen) Hyaline Casts 0-2 (0-2) /LPF COVID-19 (DACIA) (Negative) COVID-19 Clin Com 03/14/23 Range/Units 07:59 WBC (4.8-10.8) X10*3/uL RBC (4.20-5.50) X10*6/uL Hgb (12.0-16.0) g/dl Hct (37.0-47.0) % MCV (80.0-98.0) fL MCH (27.0-33.0) pg MCHC (31.0-35.0) g/dl RDW (11.0-16.0) % Plt Count (160-400) X10*3/uL MPV (9.4-12.3) fL Immature Gran % (Auto) (0.0-0.4) % Neut % (Auto) (45-73) % Lymph % (Auto) (20-40) % [place] % (Auto) (2-11) % Eos % (Auto) (0-4) % Baso % (Auto) (0-2) % Lymph # (Auto) (1.2-4.9) X10*3/uL [place] # (Auto) (0.1-1.2) X10*3/uL Eos # (Auto) (0.0-0.4) X10*3/uL Baso # (Auto) (0.0-0.2) X10*3/uL Abs Immat Gran (auto) (0.00-0.03) X10*3/uL Absolute Neuts (auto) (2.0-8.3) x10*3/uL Absolute Nucleated RBC (0.0-0.012) X10*3/uL Nucleated RBC % (auto) (0.0-0.2) /100WBC Sodium (135-145) mmol/L Potassium (3.3-5.1) mmol/L Chloride (96-108) mmol/L Carbon Dioxide (22-29) mmol/L Anion Gap (12-20) BUN (9-16) mg/dL Creatinine (0.5-1.4) mg/dL Estim Creat Clear Calc Estimated GFR Random Glucose (60-115) mg/dL Calcium (8.4-10.2) mg/dL Total Bilirubin (0.0-1.0) mg/dL Direct Bilirubin (0.0-0.5) mg/dL AST (5-31) U/L ALT (0-31) U/L Alkaline Phosphatase (39-117) U/L Total Protein (6.5-8.0) g/dL Albumin (3.5-5.0) g/dL Lipase (8-78) U/L Beta HCG, Quant mIU/mL Urine Color Urine Appearance Urine pH (5.0-9.0) Ur Specific [place] (1.005-1.025) Urine Protein (Neg-Trace) mg/dL Urine Glucose (UA) (Negative) mg/dL Urine Ketones (Negative) mg/dL Urine Blood (Negative) Urine Nitrite (Negative) Ur Leukocyte Esterase (Negative) Urine RBC (0-2) /HPF Urine WBC (0-5) /HPF Ur Squamous Epith Cells (0-2) /HPF Urine Bacteria (None Seen) Hyaline Casts (0-2) /LPF COVID-19 (DACIA) Negative (Negative) COVID-19 Clin Com See Note Independent Interpretation I performed an independent interpretation of an: CT Scan Interpretation: My interpretation is in agreement with the radiologist's impression of this imaging study. EXAMINATION: CT ABDOMEN AND PELVIS WITH CONTRAST? CLINICAL INFORMATION: Abdominal pain? COMPARISON: None available. TECHNIQUE: Multidetector volumetric images were obtained from the superior aspect of the liver through the pubic symphysis following administration 85 mL of Omnipaque 350 intravenous contrast. Sagittal and coronal reformatted images were obtained on the technologist's workstation.? Oral contrast: No This CT examination was performed using dose optimization techniques as appropriate, variously including the following: *Automated exposure control *Adjustment of mA and/or kV according to patient size (this includes techniques or standardized protocols for targeted exams where dose is matched to indication/reason for exam; i.e. extremities or head) *Use of iterative reconstruction technique DLP: 354 mGy-cm FINDINGS: LUNG BASES: The visualized lung bases are unremarkable.? LIVER, GALLBLADDER, AND BILIARY TREE: The liver is normal in size and attenuation. Mild intrahepatic and extrahepatic biliary ductal dilatation is present, likely on the basis of prior cholecystectomy. There are multiple surgical clips in the chase hepatis. A tiny low-density lesion in the posterior segment of the right hepatic lobe, segment 7 is too small to characterize but likely a cyst. PANCREAS: Unremarkable.? SPLEEN: Unremarkable.? ADRENAL GLANDS: Unremarkable.? KIDNEYS AND URETERS: The kidneys are normal in size, shape, and attenuation. No hydronephrosis, hydroureter, or calculi seen. No perinephric stranding. ? BLADDER: Unremarkable.? GASTROINTESTINAL TRACT: Mild diverticulosis of the sigmoid is present, without diverticulitis. Otherwise, the small and large bowel are unremarkable. The appendix is unremarkable.? ABDOMINAL WALL: No significant hernia is appreciated.? LYMPH NODES: Normal. VASCULAR: Unremarkable. PELVIC VISCERA: Unremarkable.? OSSEOUS STRUCTURES: Mild thoracolumbar scoliosis, convex right in the thoracic spine and left in the lumbar spine.? CT/CT abdomen pelvis w IV con IMPRESSION: ? 1. No acute findings in the abdomen or pelvis. ? 2. Mild intrahepatic and extrahepatic biliary ductal dilatation, likely on the basis of prior cholecystectomy. ? 3. Mild sigmoid diverticulosis without diverticulitis. ? Fleischner guidelines were followed. Dictated By: Conor Davies MD Signed By: Electronically signed by Conor Davies MD 03/14/23 0912 Radiology Impression Discussion of test interpretation with radiology: I have reviewed the radiologist's reading. Chronic Conditions Patient?s care impacted by: Hypertension Discharge Plan Discharge Clinical Impression: Abdominal pain Patient Disposition: Home, Self-Care Instructions: Abdominal Pain (ED) Additional Instructions: Follow up with your primary care provider and your GI doctor. Return to the emergency department immediately if your symptoms worsen or if you develop any dizziness, shortness of breath, difficulty breathing, chest pain, blurry vision, loss of vision, nausea, vomiting, abdominal pain, fever, chills, back pain, or any other complaints. Prescriptions: No Action albuterol sulfate 2.5 mg /3 mL (0.083 %) solution for nebulization 1 unit inhalation Q6H PRN (Reason: respiratory symptoms) levetiracetam 500 mg tablet 1 tab PO BID epinephrine 0.3 mg/0.3 mL auto-injector 1 device IM DIRECTED fluticasone propion-salmeterol 232-14 mcg/actuation aerosol powdr breath activated inhalation Q12H cetirizine 10 mg tablet 10 mg PO DAILY PRN albuterol sulfate 90 mcg/actuation HFA aerosol inhaler 1 inh inhalation QID PRN (Reason: shortness of breath or wheezing) Qty: 8.5 0RF albuterol sulfate 0.63 mg/3 mL solution for nebulization 0.63 mg inhalation QID PRN (Reason: shortness of breath or wheezing) Qty: 75 0RF lisinopril 2.5 mg tablet 2.5 mg PO DAILY Xolair 150 mg recon soln 0 mg subcut Referrals: [facility] [place] [facility] [Provider Group] (Call to establish and follow up with a GI provider.) [facility] [place] Family [place] [Provider Group] (Call to establish and follow up with a primary care provider. If you already have a primary care provider, please follow up with them.) [facility] [place] [facility] [Provider Group] (Call to establish and follow up with a primary care provider. If you already have a primary care provider, please follow up with them.) [facility] [place] Primary [facility] [Provider Group] (Call to establish and follow up with a primary care provider. If you already have a primary care provider, please follow up with them.) Stand Alone Forms: Work/School Release Interventions: ED Discharge Assessment Last Done: 03/14/23 09:40 Print Language: [place] Citizen
[2023-03-14 07:41] VITALS: BP 140/100; PULSE 63; RESP 20; TEMP 36.8; O2SAT 98
[2023-03-14] MEDS: Pantoprazole Sodium 40 MG/10 ML VIAL IVPUSH (07:51)
[2023-03-14] MEDS: 0.9 % Sodium Chloride 1,000 ML 999 ML IV (07:51)
[2023-03-14] MEDS: Magnesium Hydrox/Alum Hydrox 30 ML ORAL.SUSP 15 ML PO (07:51)
[2023-03-14] MEDS: ondansetron HCL 4 MG/2 ML VIAL IVPUSH (07:52)
[2023-03-14 08:31] LABS: COVID-19 Test Negative (Negative); IDNOW Serial# 08D9AD1C
[2023-03-14] MEDS: iohexoL 350 MG/ML 100 ML INFUS..BTL IV (08:36)
[2023-03-14 09:33] VITALS: BP 137/95; PULSE 70; RESP 18; O2SAT 98
== END 2023-03-14 09:46 | disposition home or self-care (01) ==
PROVIDERS: Physician Assistant Medical; Emergency Provider Emergency Medicine
DX: R10.9 Unspecified abdominal pain (principal); I10 Essential (primary) hypertension; F12.90 Cannabis use, unspecified, uncomplicated
CPT/HCPCS: 36415; 74177; 80048; 80076; 81001; 83690; 84702; 85025; 87635; 96374; 96375; 99283; 99284; J2405; Q9967

== ENCOUNTER 2025-05-20 11:19 | Outpatient (REF) | payer MEDICAID, SELFPAY ==
--- OUTSIDE RECORDS SUMMARY | 2025-05-20 14:26 | XMS_ITS | Clinical Summary ---
Author Organization [facility] Address [facility] [place] [address] Phone Care Team Providers Care Phone Triage Specialist Name Role Phone Emerson Zayas DO Primary Care Provider [phone] Allergies Active Allergy Reactions Criticality Noted Date Comments Avocado 09/24/2019 Oral allergy [facility] Dust 09/15/2018 Other 09/24/2019 Apple, banana, orange, kiwi, grape - oral allergy syndrome Pollen Extracts 11/04/2017 Prednisone 09/14/2020 seizures Shellfish Derived Itching 09/24/2019 Medications Treleizabela Ellipta 200-62.5-25 mcg inhaler 4 Active albuterol 2.5 mg /3 mL (0.083 %) nebulizer solutionIndicati ons:Intermittent asthma without complication, unspecified asthma severity Take 3 mL (2.5 mg total) by nebulization every 4 (four) hours if needed for wheezing. 75 each 3 4 Active lisinopriL (PRINIVIL,ZESTRI L) 5 mg tabletIndication s:Primary hypertension Take 1 tablet (5 mg total) by mouth 1 (one) time each day. 30 each 5 4 Active albuterol HFA (PROAIR HFA ; PROVENTIL HFA ; VENTOLIN HFA) 90 mcg/actuation inhalerIndicatio ns:Moderate asthma with exacerbation, unspecified whether persistent Inhale 2 puffs by mouth every 4 (four) hours if needed for wheezing. 18 g 4 Active Airsupra 90-80 mcg/actuation inhaler 4 Active Hospital, Clinic, or Other Facility Administered Medication Ordered Dose Route Frequency Start Date End Date Status albuterol-budesonide (AIRSUPRA) 90-80 mcg/actuation inhaler 2 puffIndications:Moder ate asthma with exacerbation, unspecified whether persistent 2 puff inhl 2 times daily PRN 07/28/2024 Active Active Problems Problem Noted Date Diagnosed Date Intermittent asthma without complication 024 Primary hypertension 11/11/2023 Wellness examination 11/11/2023 Seizure disorder ([facility] V24, [facility] V28) 03/30 Overview (05/18/2024): Normal CT and MRI follows with Dr Hatfield Resolved Problems Problem Noted Date Diagnosed Date Resolved Date H. pylori infection 02/21/2018 05/18/20 24 Overview (05/18/2024): 04/2015 and gastritis;Unclear of treatment Encounters Date Type Department Care Team Description 05/13/2025 Telephone [facility] Primary Care [address] [place] [address] CortezElisabet hernandezllrafaela ND from Last 3 Months Immunizations Immunization Administration Dates Next Due Influenza Quadravalent, MDCK , 0.5ml, preservative free (Flucelvax) 6mo and older 05/12/2020 Influenza Quadravalent, MDCK , 0.5ml, with preservative (Flucelvax) 6mo and older 05/25/2022,04/18/2021 Influenza trivalent, with pr eservative (Fluzone; Afluria) 6mo and older 05/19/2020 MMR, measles mumps and rubel la Live (Priorix; M-M-R II) 12mo and older 05/23/2018 Pneumococcal conjugate 13 va lent (Prevnar 13, PCV13) 2mo and older 09/14/2019 Tdap Tetanus diptheria acell ular pertussis (Boostrix; Adacel) 7yo and older 01/01/2018 Surgical History Surgery Date Site/Laterality Comments GALLBLADDER 14 years ago TUBAL LIGATION 15 years ago PARTIAL HYSTERECTOMY ALVIN- Medical History Medical History Date Comments Allergic Asthma Hypertension Seizures ([facility] V24, [facility] V28) H. pylori infection 02/21/201804/2015 and gastritis;Unclear of treatment Family History Medical History Relation Name Comments Dementia Father Prostate cancer Father Lung cancer Maternal Grandmother Dementia Mother Diabetes Mother Stomach cancer Paternal Grandmother Relation Name Status Comments Father Maternal Grandmother Mother Paternal Grandmother Social History Tobacco Use Types Packs/Day Years Used Date Smoking Tobacco: Never Smokeless Tobacco: Never Tobacco Cessation:Counseling Given: Not Answered Alcohol Use Standard Drinks/Week Comments Yes 0 (1 standard drink = 0.6 oz pur e alcohol) social drinker Housing Instability Answer Date Recorde d Are you worried that in the next 2 months you may not have stable housing? No 05/18/2024 Food Access & Nutrition Answer Date Rec orded Do you have access to a vari ety of food including fruits and vegetables? Yes 05/18/2024 Access to Healthcare Answer Date Record ed Within the last 3 months, ho w many times did you visit the emergency department for your medical care? 0 05/18/2024 Health Literacy Answer Date Recorded How often do you need to hav e someone help you when you read instructions, pamphlets, or other written material from your doctor or pharmacy? Never 05/18/2024 Caregiver: How often do you need to have someone help you when you read instructions, pamphlets, or other written material from your doctor or pharmacy? Not on file 05/18/2024 Financial Risk Answer Date Recorded How hard is it for you to pa y for the very basics like food, housing, medical care, and air conditioning / heating? Not very hard 05/18/2024 Transportation Answer Date Recorded Has the lack of transportati on kept you from meetings, work, or from getting things needed for daily living? No Has the lack of transportati on kept you from medical appointments or from getting medications? No 05/18/2024 Social Isolation Answer Date Recorded How often do you feel lonely or isolated from th ose around you? Never 05/18/2024 Food Risk Answer Date Recorded Within the past 12 months we worried whether our food would run out before we got money to buy more. Never true 05/18/2024 Within the past 12 months th e food we bought just didn't last and we didn't have money to get more. Never true 05/18/2024 Comments No Sex and Gender Information Value Date Recorded Sex Assigned at Not on file Legal Sex Female 3:17 PM EST Gender Identity Not on file Sexual Orientation Not on file Obstetrics History Para Term AB IAB SAB Ectopic Multiple Livin g Live Births 1 1 1 1 1 Date Outcome GA Total Labor Labor/2nd/3rd Weight Sex Type Anes PTL Katheryn A1 A5 Name Clin Term F Vag-S pont Living Last Filed Vital Signs Vital Sign Reading Time Taken Comments Blood Pressure 130/84 11/23/2024 11:36 AM EDT Pulse 77 11/23/2024 10:33 AM EDT Temperature 36.7 C (98.1 F) 11/23/2024 10:33 AM EDT Respiratory Rate 23 07/28/2024 2:00 PM EST Oxygen Saturation 99% 11/23/2024 10:33 AM EDT Inhaled Oxygen Concentration - - Weight 58.5 kg (129 lb) 11/23/2024 10:33 AM EDT Height 154.9 cm (5' 1 ) 11/23/2024 10:33 AM EDT Body Mass Index 24.37 11/23/2024 10:33 AM EDT Plan of Treatment Health Maintenance Due Date Last Done Comments Hepatitis B Vaccines (1 of 3 - 19+ 3-dose series) 2002 HPV Vaccines (1 - 3-dose SCDM series) 2010 Pneumococcal Vaccine: Pediatrics (0 to 5 Years) and At-Risk Patients (6 to 49 Years) (2 of 2 - PPSV23, PCV20, or PCV21) 11/09/2019 09/14/2019 Cholesterol Screening (Lipid Panel) 07/07/2022 HIV Screening 07/07/2022 Hepatitis C Screening 07/07/2022 Social Influencers of Health Screening 07/07/2022 COVID-19 Vaccine ( season) 2025 09/21/2021, 12/31/2020, 12/10/2020 Influenza Vaccine (#1) 2025 2, 04/18/2021, 05/19/2020, Additional history exists Hypertension/CHF/CAD Annual BMP Blood Test 07/28/2025 07/28/2024, 11/15/2023 Breast Cancer Screening 12/01/2026 12/01/2024, 11/24 DTaP,Tdap,and Td Vaccines (2 - Td or Tdap) 01/02/2028 01/01/2018 RSV Immunization Adult Patients (1 - 1-dose 75+ series) 2058 MMR Vaccines Aged Out 05/23/2018 No longer eligi ble based on patient's age to complete this topic Depression Screening Completed 08/04/2024 HIB Vaccines Aged Out No longer eligi ble based on patient's age to complete this topic Hepatitis A Vaccines Aged Out No long er eligible based on patient's age to complete this topic IPV Vaccines Aged Out No longer eligi ble based on patient's age to complete this topic Meningococcal ACWY Vaccine Aged Out N o longer eligible based on patient's age to complete this topic Meningococcal B Vaccine Aged Out No l onger eligible based on patient's age to complete this topic RSV Immunization Patients Under 20 months Aged Out No longer eligible based on patient's age to complete this topic Varicella Vaccines Aged Out No longer eligible based on patient's age to complete this topic Procedures Procedure Name Priority Date/Time Associated Diagnosis Comments MG MAMMO DIGITAL SCREENING W CARLTON BILAT Routine 12/01/2024 10:54 AM EDT Encounter for screening mammogram for breast cancer COMPREHENSIVE METABOLIC PANEL STAT 07/28/2024 10:40 AM EST from Last 3 Months or Most Recently Relevant to Health Maintenance Results * MG Mammo Digital Screening w Carlton bilat (12/01/2024 10:54 AM EDT) Anatomical Region Laterality Modality Breast Bilateral Mammography 12/01/2024 3:58 PM EDT Impressions 12/01/2024 4:00 PM EDT Right breast assessment: Negative. No mammographic evidence of malignancy. Left breast assessment: Negative. No mammographic evidence of malignancy. OVERALL BI-RADS: 1 - NEGATIVE RECOMMENDATION: Screening bilateral mammogram is recommended in 1 year. COMMUNICATION: Findings and recommendations will be mailed to the patient. The patient's information was entered into a reminder system with a target date for the next mammogram. LOCATION: [facility] Radiology [facility] Mammography Department. [facility] [address] [place], [place], [address]. [phone]. -------- FINAL REPORT -------- Dictated By: Cyndee Duong Dictated Date: 12/01/2024 15:58 ET Assigned Physician: Cyndee Duong Reviewed and Electronically Signed By: Cyndee Duong Signed Date: 12/01/2024 16:00 ET Workstation ID: [id number] Transcribed By: Self Edit Transcribed Date: 12/01/2024 15:58 ET Narrative 12/01/2024 4:00 PM EDT HISTORY: 39 years old Female presents for screening mammogram. The patient is asymptomatic. The patient denies personal and (first degree) family history of breast cancer. TECHNIQUE: Bilateral screening mammography with tomosynthesis was performed. COMPARISON: Comparison is made with a single prior mammogram dated 11/25/2023. FINDINGS: D - The breasts are extremely dense which lowers the sensitivity of mammography. Right Breast: No suspicious mass, architectural distortion or microcalcifications are seen. Left Breast: No suspicious mass, architectural distortion or microcalcifications are seen. Procedure Note Cyndee Hopkins MD - 12/01/2024 HISTORY: 39 years old Female presents for screening mammogram. Thepatient is asymptomatic. The patient denies personal and (first degree)family history of breast cancer. TECHNIQUE: Bilateral screening mammography with tomosynthesis wasperformed. COMPARISON: Comparison is made with a single prior mammogram dated11/25/2023. FINDINGS: D - The breasts are extremely dense which lowers the sensitivity ofmammography. Right Breast: No suspicious mass, architectural distortion or microcalcifications areseen. Left Breast: No suspicious mass, architectural distortion or microcalcifications areseen. IMPRESSION: Right breast assessment: Negative. No mammographic evidence of malignancy. Left breast assessment: Negative. No mammographic evidence of malignancy. OVERALL BI-RADS: 1 - NEGATIVE RECOMMENDATION: Screening bilateral mammogram is recommended in 1 year. COMMUNICATION: Findings and recommendations will be mailed to the patient.The patient's information was entered into a reminder system with a targetdate for the next mammogram. LOCATION: [facility] Radiology Services Mammography Department.[address] [place] [address], [address]. [phone]. -------- FINAL REPORT -------- Dictated By: Cyndee Duong Dictated Date: 12/01/2024 15:58 ET Assigned Physician: Cyndee Duong Reviewed and Electronically Signed By: Cyndee Duong Signed Date: 12/01/2024 16:00 ET Workstation ID: [id number] Transcribed By: Self Edit Transcribed Date: 12/01/2024 15:58 ET us Self Referral Nzpl IMG BI PROCEDURES Final Resul t * (ABNORMAL) Comprehensive metabolic panel (07/28/2024 10:40 AM EST) Sodium 140 136 - 145 mmol/L LAB CHEMISTRY METHOD 07/28/2024 11:28 AM [facility] Potassium 4.2 3.5 - 5.1 mmol/L LAB CHEMISTRY METHOD 07/28/2024 11:28 AM [facility] Chloride 106 98 - 107 mmol/L LAB CHEMISTRY METHOD 07/28/2024 11:28 AM [facility] CO2 27 20 - 31 mmol/L LAB CHEMISTRY METHOD 07/28/2024 11:28 AM [facility] Anion Gap 7(L) 10 - 17 LAB CHEMISTRY METHOD 07/28/2024 11:28 AM [facility] Glucose 90 74 - 106 mg/dL LAB CHEMISTRY METHOD 07/28/2024 11:28 AM [facility] BUN 10 9 - 23 mg/dL LAB CHEMISTRY METHOD 07/28/2024 11:28 AM [facility] Creatinine 0.82 0.55 - 1.02 mg/dL LAB CHEMISTRY METHOD 07/28/2024 11:28 AM [facility] eGFR 92 >=60 mL/min/1. 73m2 LAB CHEMISTRY METHOD 07/28/2024 11:28 AM [facility] Comment:Calculation based on the Chronic Kidney Disease Epidemiology Collaboration (CKD-EPI) equation refit without adjustment for race. BUN/Creatinine Ratio 12.2 12.0 - 20.0 LAB CHEMISTRY METHOD 07/28/2024 11:28 AM [facility] Calcium 9.4 8.3 - 10.6 mg/dL LAB CHEMISTRY METHOD 07/28/2024 11:28 AM [facility] AST (SGOT) 17 0 - 34 unit/L LAB CHEMISTRY METHOD 07/28/2024 11:28 AM [facility] ALT (SGPT) 13 10 - 49 unit/L LAB CHEMISTRY METHOD 07/28/2024 11:28 AM [facility] Alkaline Phosphatase 84 46 - 116 unit/L LAB CHEMISTRY METHOD 07/28/2024 11:28 AM [facility] Total Protein 7.5 5.7 - 8.2 g/dL LAB CHEMISTRY METHOD 07/28/2024 11:28 AM [facility] Albumin 4.1 3.4 - 5.0 g/dL LAB CHEMISTRY METHOD 07/28/2024 11:28 AM [facility] Total Bilirubin 0.6 0.3 - 1.2 mg/dL LAB CHEMISTRY METHOD 07/28/2024 11:28 AM [facility] Blood Venous blood specimen / Unknown Venipuncture / Unknown 07/28/2024 10:40 AM EST 07/28/2024 10:54 AM EST us Julieta Colmenares MD LAB BLOOD ORDERABLES Final Res ult [facility] [address] [place] [address], from Last 3 Months or Most Recently Relevant to Health Maintenance Insurance [facility] [place] Care Teams Phone Triage Specialist Relationship Specialty Start Date End Date Emerson Zayas DO [address] [place] [id number] PCP - General Family Medicine 10/11/23
[2025-05-20 14:35] LABS: MANUAL DIFF FLAG NO
[2025-05-20 14:45] LABS: Hematocrit 38.6 % (37.0-47.0); Hemoglobin 13.1 g/dl (12.0-16.0); Imm Gran Abs Auto 0.01 X10*3/uL (0.00-0.03); Imm Gran Pct Auto 0.2 % (0.0-0.4); Lymphocytes Absolute Auto 1.5 X10*3/uL (1.2-4.9); Mean Corpuscular HGB Conc 33.9 g/dl (31.0-35.0); Mean Corpuscular Hemoglobin 30.8 pg (27.0-33.0); Mean Corpuscular Volume 90.6 fL (80.0-98.0); NRBC Abs Auto 0.000 X10*3/uL (0.0-0.012); NRBC Pct Auto 0.0 /100WBC (0.0-0.2); Platelet Count 266 X10*3/uL (160-400); Red Blood Count 4.26 X10*6/uL (4.20-5.50); White Blood Count 6.6 X10*3/uL (4.8-10.8)
[2025-05-20 14:59] LABS: Alanine Aminotransferase 13 U/L (0-31); Albumin Level 4.5 g/dL (3.5-5.0); Alkaline Phosphatase 72 U/L (39-117); Anion Gap 9 (12-20); Aspartate Amino Transferase 21 U/L (5-31); Blood Urea Nitrogen 10 mg/dL (9-16); Calcium 8.6 mg/dL (8.4-10.2); Carbon Dioxide 27 mmol/L (22-29); Chloride 110 mmol/L (96-108); Cholesterol 153 mg/dL (<200); Estimated Glomerular Filt Rate > 60; HDL Cholesterol 66 mg/dL (>40); Potassium 3.2 mmol/L (3.3-5.1); Sodium 143 mmol/L (135-145); Total Protein 7.2 g/dL (6.5-8.0); Triglycerides 63 mg/dL (<150)
[2025-05-21 04:37] LABS: HIV Num 1 0.08 S/CO (0.00-0.99); ~HepC Num1 0.08 S/CO (0.00-0.79); ~Hepatitis C Antibody Nonreactive (Nonreactive)
== END 2025-05-20 11:20 | disposition home or self-care (01) ==
LOC: HO.CHCLDS 11:19
PROVIDERS: Visit Provider Internal Medicine
DX: Z11.4 Encounter for screening for human immunodeficiency virus [HIV] (principal); Z11.59 Encounter for screening for other viral diseases; Z76.89 Persons encountering health services in other specified circumstances
CPT/HCPCS: 36415; 80053; 80061; 83036; 84443; 85025; 86803; 87389

== ENCOUNTER 2025-07-21 08:35 | Outpatient (REF) | payer MEDICAID, SELFPAY ==
--- OUTSIDE RECORDS SUMMARY | 2025-07-17 18:36 | XMS_ITS | Encounter Summary ---
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 Not on kee e 07/17/2025 Are you concerned about learning? Not on file 07/17/2025 No 07/17/2025 No 07/17/2025 Food Answer Date Recorded Within the past 6 months we worried whether our food would run out before we got money to buy more. Never True 07/17/2025 Within the past 6 months the food we bought just didn't last and we didn't have enough money to get more. Never True Residential Stability Answer Date Recor ded What is your housing situation today? I have dileep sing 07/17/2025 How many times have you move d in the past 12 months? Zero (I did not move) 07/17/2025 Paying for Meds Answer Date Recorded Do you have trouble paying for medicines? No 07/17/2025 Paying Utility Bills Answer Date Record ed Do you have trouble paying your heating or elect ricity bill? No 07/17/2025 Transportation Answer Date Recorded Has the lack of transportati on kept you from medical appointments or from getting medications? No 07/17/2025 Digital Access Answer Date Recorded No 07/17/2025 Yes 07/17/2025 Do you have reliable internet access at home? Ye s 07/17/2025 Do you have a device (e.g., phone, tablet, computer) with a working camera? Yes 07/17/2025 Intimate Partner Violence Answer Date R ecorded Are you denied basic needs s uch as food, clothing, or medical care? No 07/17/2025 In the past 12 months have y ou been in a relationship with a person who hurts, threatens, or tries to control you? No 07/17/2025 Are you denied basic needs s uch as food, clothing, or medical care? No 07/17/2025 In the past 12 months have y ou been in a relationship with a person who hurts, threatens, or tries to control you? No 07/17/2025 Comments Unknown Sex and Gender Information Value Date Recorded Sex Assigned at Female 07/17/2025 9:35 PM EST Legal Sex Female 9:17 PM EDT Gender Identity Female 07/17/2025 9:35 PM EST Sexual Orientation Straight 07/17/2025 9: 35 PM EST documented as of this encounter Last Filed Vital Signs Vital Sign Reading Time Taken Comments Blood Pressure 122/82 07/17/2025 9:37 PM EST Pulse 72 07/17/2025 9:37 PM EST Temperature 36.1 C (97 F) 07/17/2025 9:37 PM EST Respiratory Rate 18 07/17/2025 9:37 PM EST Oxygen Saturation 98% 07/17/2025 9:37 PM EST Inhaled Oxygen Concentration - - Weight 59 kg (130 lb) 07/17/2025 6:34 PM EST Height 154.9 cm (5' 1 ) 07/17/2025 6:34 PM EST Body Mass Index 24.56 07/17/2025 6:34 PM EST documented in this encounter Functional Status * Dick Fall Risk Score Descriptions Question Answer Date of Assessment Author Select based on above score No risk for falls: 0 07/17/2025 6:35 PM EST Ruben Carson RN * Dick Fall Risk Question Answer Date of Assessment Author History of Falling 0 07/17/2025 6:35 PM EST Ruben Carson RN Secondary Diagnosis 0 07/17/2025 6:35 PM ES T Ruben Carson RN Ambulatory Aids 0 07/17/2025 6:35 PM EST Ruben Cole RN Intravenous Therapy/Heparin/ Saline Lock 0 07/17/2025 6:35 PM EST Ruben Carosn RN Gait/Transferring 0 07/17/2025 6:35 PM EST Ruben Carson RN Mental Status 0 07/17/2025 6:35 PM EST Ruben Garcia RN Morse Fall Risk Score 0 07/17/2025 6:35 PM EST Ruben Carson RN * Calculated C-SSRS Risk Score (Lifetime/Recent) Answer Date of Assessment Author No Risk Indicated 07/17/2025 6:35 PM Ruben Lyon RN * Mellette Suicide Severity Rating Scale (Screener/Recent Self-Report) Question Answer Date of Assessment Author 1. Wish to be (Past 1 Month) No 025 6:35 PM EST Ruben Carson RN 2. Non-Specific Active Suici dara Thoughts (Past 1 Month) No 07/17/2025 6:35 PM EST Ruben Carson RN 6. Suicidal Behavior (Lifetime) No 6:35 PM EST Ruben Carson RN documented as of this encounter Discharge Instructions * Discharge Instructions* Brian Zavala MD - 07/17/2025 10:21 PM EST I am not sure exactly what is causing the abdominal pain, but I think that this likely caused you to have this reaction, where your blood pressure was transiently lowered and this can cause you to pass out or feel like you are about to. Your potassium levels were a bit low today, we are giving you a list of potassium containing foods and we would recommend trying to eat these, have your PCP recheck your potassium levels in 1 to 2 weeks. Eat a bland diet for the next 1 to 2 days, do return here for reevaluation if your abdominal pain worsens or you start vomiting or having other symptoms such as fever. Follow-up with your PCP if otherwise doing well. * Attachments The following attachments cannot be sent through Care Everywhere. * Vasovagal Syncope (Iraqi) * High Potassium Foods: General Info (Iraqi) documented in this encounter ED Notes * Brayan Mcfadden RN - 07/17/2025 10:36 PM EST ED Discharge Nursing Note Patient seen by and deemed safe for discharge at this time. Discharge instructions reviewed andquestions answered if asked. Patient/family understand criteria to return to ED and has been urged to do so if the circumstances arise. If patient was given narcotics or other sedating medications; patient educated on importance of not driving until medication wears off and confirmed they had an alternate means of getting home safely. Patient ambulated out of ED with even steady gait. * Brayan Mcfadden RN - 07/17/2025 10:07 PM EST ED Nursing Progress Note Assumed caare. Pt tolerating po fluid at this time. Pt reports no abd pain or medical complaints. Provider updated * Candice Blakely RN - 07/17/2025 9:45 PM EST ED Nursing Progress Note Per ED provider, PO trial with patient at this time. Pt provided water and is agreeable to plan. * Ruben Carson RN - 07/17/2025 6:33 PM EST While at work patient had acute onset severe epigastric pain, while seated with co-worker present began feeling very sweaty and hot then syncopized, no injury. Patient then came to immediately alert and oriented, reports feeling much improved during triage. * Brian Zavala MD - 07/17/2025 6:27 PM EST Chief Complaint Chief Complaint Patient presents with Abdominal Pain Syncope History of Present Illness The patient, Shae Rodriguez,is a 40 y.o. 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 She was sitting down about to have her dinner, when she felt a strong pain in the epigastrium, she subsequently got nauseated, sweaty, tunnel vision, and then apparently passed out. She states that this has not happened to her before. She is feeling better, though still reports mild epigastric discomfort. She has had a cholecystectomy years ago. Unless otherwise specified, I have reviewed and agree with the triage and nursing notes. ROS A ten point review of systems was negative except what was noted in the HPI. Review of Systems Past Medical History No past medical history on file. Past Surgical History No past surgical history on file. Home Medications Prior to Admission medications Not on File Allergies Allergies Allergen Reactions Seafood [Fish Derived] Social and Family History Social History Tobacco Use Smoking status: Not on file Smokeless tobacco: Not on file Substance Use Topics Alcohol use: Not on file Social History Substance and Sexual Activity Drug Use Not on file No family history on file. Physical Exam Vital Signs: ED Triage Vitals [07/17/25 1834] Encounter Vitals Group BP (!) 167/105 Girls Systolic BP Percentile Girls Diastolic BP Percentile Boys Systolic BP Percentile Boys Diastolic BP Percentile Heart Rate 79 Respiratory Rate 18 Temperature 36 ??C (96.8 ??F) Temp Source Temporal SpO2 99 % Weight 130 lb Height 5' 1 Head Circumference Peak Flow Pain Score Pain Loc Pain Education Exclude from Growth Chart Physical Exam Vitals and nursing note reviewed. Constitutional: General: She is not in acute distress. Appearance: She is well-developed. She is not toxic-appearing. HENT: Head: Normocephalic and atraumatic. Mouth/Throat: Mouth: Mucous membranes are moist. Eyes: Conjunctiva/sclera: Conjunctivae normal. Pupils: Pupils are equal, round, and reactive to light. Cardiovascular: Rate and Rhythm: Normal rate and regular rhythm. Heart sounds: Normal heart sounds. Pulmonary: Effort: Pulmonary effort is normal. No respiratory distress. Breath sounds: Normal breath sounds. Abdominal: Palpations: Abdomen is soft. Tenderness: There is abdominal tenderness in the epigastric area. Musculoskeletal: General: Normal range of motion. Cervical back: Normal range of motion and neck supple. Skin: General: Skin is warm and dry. Neurological: Mental Status: She is alert and oriented to person, place, and time. Laboratory Testing Results for orders placed or performed during the hospital encounter of 07/17/25 CBC and Differential Specimen: Blood Result Value Ref Range WBC 6.38 4.00 - 11.00 K/uL RBC 4.36 4.00 - 5.20 M/uL Hemoglobin 13.6 12.0 - 16.0 g/dL Hematocrit 39.0 36.0 - 46.0 % MCV 89.4 80.0 - 100.0 fL MCH 31.2 (H) 27.0 - 31.0 pg MCHC 34.9 32.0 - 36.0 g/dL MPV 8.7 8.4 - 12.0 fL RDW-CV 11.9 11.5 - 14.5 % PLT 211 150 - 450 K/uL Neutrophils 64.3 % Lymphocytes 25.1 % Monocytes 5.6 % Eosinophils 4.1 % Basophils 0.6 % Imm Grans 0.3 % NRBC 0.0 <=0.0 /100 WBCs Absolute Neutrophils 4.10 1.92 - 7.60 K/uL Absolute Lymphocytes 1.60 0.72 - 4.10 K/uL Absolute Monocytes 0.36 0.16 - 1.10 K/uL Absolute Eosinophils 0.26 0.00 - 0.50 K/uL Absolute Basophils 0.04 0.00 - 0.15 K/uL Absolute Imm Grans 0.02 0.00 - 0.09 K/uL Absolute NRBC 0.00 <=0.00 K cells/uL Absolute Neutrophils 4.10 1.92 - 7.60 K/uL Diff Type Auto Lipase Specimen: Blood Result Value Ref Range Lipase 96 (H) 13 - 60 U/L Hepatic Panel (LFTs) Specimen: Blood Result Value Ref Range AST 40 (H) <33 U/L ALT 18 <34 U/L Alkaline Phosphatase 70 40 - 130 U/L Bilirubin, Total 0.8 0.0 - 1.2 mg/dL Bilirubin, Direct 0.3 0.0 - 0.3 mg/dL Total Protein 7.2 6.4 - 8.3 g/dL Albumin 4.5 3.5 - 5.2 g/dL Globulin 2.7 1.9 - 4.1 g/dL Human Chorionic Gonadotropin (HCG), Qualitative, Blood Specimen: Blood Result Value Ref Range hCG Qualitative Negative Negative Urinalysis with Reflex to Urine Culture Specimen: Urine, Voided Result Value Ref Range Color Yellow Yellow Clarity Clear Clear Glucose Negative Negative Bilirubin Urine Negative Negative Ketone Urine 1+ (*) Negative Specific [place] 1.015 1.001 - 1.035 Blood Negative Negative pH 6.0 5.0 - 8.0 Protein Negative Negative Nitrites Negative Negative Leukocyte Esterase Negative Negative Urobilinogen Negative Negative Basic Metabolic Panel (BMP) Specimen: Blood Result Value Ref Range Sodium 139 136 - 145 mmol/L Potassium 2.8 (L) 3.4 - 5.1 mmol/L Chloride 104 98 - 107 mmol/L CO2 23 20 - 31 mmol/L BUN 11 6 - 23 mg/dL Creatinine 0.70 0.50 - 1.00 mg/dL Glucose 104 (H) 70 - 99 mg/dL Calcium 9.1 8.5 - 10.5 mg/dL eGFR 111 >59 mL/min/1.73m2 Anion Gap 12 3 - 17 mmol/L Radiology Testing No orders to display ED Medication from 07/17/2025 1827 to 07/18/2025 0146 Date/Time Order Dose Route Action Action by Comments 07/17/20251 EST potassium chloride (MICRO-K) ER capsule 20 mEq 20 mEq Oral Given Brayan Mcfadden RN -- EKG: NSR @ 76, no ischemic changes, normal intervals. MDM MDM The patient presents with what appears to have been a vasovagal syncopal episode, likely in response to epigastric pain. The epigastric pain is still present, but all of her other symptoms have resolved, she does not have a gallbladder, lipase slightly elevated, LFTs not concerning. She is tolerating p.o.'s, we discussed following up if her abdominal pain does not improve or gets worse, discussedthe likely vasovagal episode, she should follow-up with her PCP. Clinical Impressions as of 07/18/25145 Epigastric pain Vasovagal syncope Clinical Impression Diagnosis Description Comment Final diagnoses Epigastric pain Epigastric pain -- Vasovagal syncope Vasovagal syncope -- Disposition: Home Brian Zavala MD 07/18/25148 documented in this encounter Plan of Treatment Not on file documented as of this encounter Procedures Procedure Name Priority Date/Time Associated Diagnosis Comments URINALYSIS WITH REFLEX TO URINE CULTURE STAT 07/17/2025 8:08 PM EST HCG, SERUM QUALITATIVE STAT 07/17/2025 7:19 PM EST CBC AND DIFFERENTIAL STAT 07/17/2025 7:19 PM EST LFTS (HEPATIC PANEL) STAT 07/17/2025 7:19 PM EST CBC AND DIFFERENTIAL STAT 07/17/2025 7:19 PM EST LIPASE STAT 07/17/2025 7:19 PM EST BASIC METABOLIC PANEL (BMP) STAT 07/17/2025 7:19 PM EST ECG 12-LEAD STAT 07/17/2025 7:03 PM EST documented in this encounter Results * (ABNORMAL) Urinalysis with Reflex to Urine Culture (07/17/2025 8:08 PM EST) Color Yellow Yellow 07/17/2025 9:07 PM [facility] Clarity Clear Clear 07/17/2025 9:07 PM [facility] Glucose Negative Negative 07/17/2025 9:07 PM [facility] Bilirubin Urine Negative Negative 9:07 PM [facility] Ketone Urine 1+(A) Negative 07/17/2025 9:07 PM [facility] Specific [place] 1.015 1.001 - 1.035 07/17/2025 9:07 PM [facility] Blood Negative Negative 07/17/2025 9:07 PM [facility] pH 6.0 5.0 - 8.0 07/17/2025 9:07 PM [facility] Protein Negative Negative 07/17/2025 9:07 PM [facility] Nitrites Negative Negative 07/17/2025 9:07 PM [facility] Leukocyte Esterase Negative Negative 07/17/2025 9:07 PM [facility] Urobilinogen Negative Negative 07/17/2025 9:07 PM [facility] Urine (Urine, Voided) Non-Blood Collection / Unknown 07/17/2025 8:08 PM EST 07/17/2025 8:19 PM EST us Brian Zavala MD LAB URINE ORDERABLES Fin al Result [address] [address] * (ABNORMAL) CBC and Differential (07/17/2025 7:19 PM EST) WBC 6.38 4.00 - 11.00 K/uL 07/17/2025 7:26 PM [facility] RBC 4.36 4.00 - 5.20 M/uL 07/17/2025 7:26 PM [facility] Hemoglobin 13.6 12.0 - 16.0 g/dL 07/17/2025 7:26 PM [facility] Hematocrit 39.0 36.0 - 46.0 % 07/17/2025 7:26 PM [facility] MCV 89.4 80.0 - 100.0 fL 07/17/2025 7:26 PM [facility] MCH 31.2(H) 27.0 - 31.0 pg 07/17/2025 7:26 PM [facility] MCHC 34.9 32.0 - 36.0 g/dL 07/17/2025 7:26 PM [facility] MPV 8.7 8.4 - 12.0 fL 07/17/2025 7:26 PM [facility] RDW-CV 11.9 11.5 - 14.5 % 07/17/2025 7:26 PM [facility] PLT 211 150 - 450 K/uL 07/17/2025 7:26 PM [facility] Neutrophils 64.3 % 07/17/2025 7:26 PM [facility] Lymphocytes 25.1 % 07/17/2025 7:26 PM [facility] Monocytes 5.6 % 07/17/2025 7:26 PM [facility] Eosinophils 4.1 % 07/17/2025 7:26 PM [facility] Basophils 0.6 % 07/17/2025 7:26 PM [facility] Imm Grans 0.3 % 07/17/2025 7:26 PM [facility] NRBC 0.0 <=0.0 /100 WBCs 07/17/2025 7:26 PM [facility] Absolute Neutrophils 4.10 1.92 - 7.60 K/uL 07/17/2025 7:26 PM [facility] Absolute Lymphocytes 1.60 0.72 - 4.10 K/uL 07/17/2025 7:26 PM [facility] Absolute Monocytes 0.36 0.16 - 1.10 K/uL 07/17/2025 7:26 PM [facility] Absolute Eosinophils 0.26 0.00 - 0.50 K/uL 07/17/2025 7:26 PM [facility] Absolute Basophils 0.04 0.00 - 0.15 K/uL 07/17/2025 7:26 PM [facility] Absolute Imm Grans 0.02 0.00 - 0.09 K/uL 07/17/2025 7:26 PM [facility] Absolute NRBC 0.00 <=0.00 K cells/uL 07/17/2025 7:26 PM [facility] Absolute Neutrophils 4.10 1.92 - 7.60 K/uL 07/17/2025 7:26 PM [facility] Comment:Automated cell count . Manual ANC may differ if performed. Diff Type Auto 07/17/2025 7:26 PM [facility] Blood (Blood) Venipuncture / Unknown 07/17/2025 7:19 PM EST 07/17/2025 7:23 PM EST us Brian Zavala MD LAB BLOOD BKR ORDERABLES Final Result Performing Organization Address City/[facility]/ZIP Co de Phone Number [address] [address] * (ABNORMAL) Lipase (07/17/2025 7:19 PM EST) Lipase 96(H) 13 - 60 U/L 07/17/2025 7:48 PM [facility] Blood (Blood) Venipuncture / Unknown 07/17/2025 7:19 PM EST 07/17/2025 7:23 PM EST us Brian Zavala MD LAB BLOOD BKR ORDERABLES Final Result Performing Organization Address [facility] Co de Phone Number [address] [address] * (ABNORMAL) Hepatic Panel (LFTs) (07/17/2025 7:19 PM EST) AST 40(H) <33 U/L 07/17/2025 7:48 PM [facility] ALT 18 <34 U/L 07/17/2025 7:48 PM [facility] Alkaline Phosphatase 70 40 - 130 U/L 07/17/2025 7:48 PM [facility] Bilirubin, Total 0.8 0.0 - 1.2 mg/dL 07/17/2025 7:48 PM [facility] Bilirubin, Direct 0.3 0.0 - 0.3 mg/dL 07/17/2025 7:48 PM [facility] Total Protein 7.2 6.4 - 8.3 g/dL 07/17/2025 7:48 PM [facility] Albumin 4.5 3.5 - 5.2 g/dL 07/17/2025 7:48 PM [facility] Globulin 2.7 1.9 - 4.1 g/dL 07/17/2025 7:48 PM [facility] Blood (Blood) Venipuncture / Unknown 07/17/2025 7:19 PM EST 07/17/2025 7:23 PM EST us Brian Zavala MD LAB BLOOD BKR ORDERABLES Final Result [address] [address] * Human Chorionic Gonadotropin (HCG), Qualitative, Blood (07/17/2025 7:19 PM EST) Pathologist [facility] hCG Qualitative Negative Negative 7:50 PM [facility] Blood (Blood) Venipuncture / Unknown 07/17/2025 7:19 PM EST 07/17/2025 7:23 PM EST us Brian Zavala MD LAB BLOOD BKR ORDERABLES Final Result Performing Organization Address [facility] Co de Phone Number [address] [address] * (ABNORMAL) Basic Metabolic Panel (BMP) (07/17/2025 7:19 PM EST) [facility] Sodium 139 136 - 145 mmol/L 07/17/2025 7:48 PM [facility] Potassium 2.8(L) 3.4 - 5.1 mmol/L 07/17/2025 7:48 PM [facility] Chloride 104 98 - 107 mmol/L 07/17/2025 7:48 PM [facility] CO2 23 20 - 31 mmol/L 07/17/2025 7:48 PM [facility] BUN 11 6 - 23 mg/dL 07/17/2025 7:48 PM [facility] Creatinine 0.70 0.50 - 1.00 mg/dL 07/17/2025 7:48 PM [facility] Glucose 104(H) 70 - 99 mg/dL 07/17/2025 7:48 PM [facility] Calcium 9.1 8.5 - 10.5 mg/dL 07/17/2025 7:48 PM [facility] eGFR 111 >59 mL/min/1.7 3m2 07/17/2025 7:48 PM EST [facility] Comment:Estimated glomerular filtration rate calculated using the CKD-EPI refit equation. Anion Gap 12 3 - 17 mmol/L 07/17/2025 7:48 PM EST [facility] Blood (Blood) Venipuncture / Unknown 07/17/2025 7:19 PM EST 07/17/2025 7:23 PM EST us Brian Zavala MD LAB BLOOD BKR ORDERABLES Final Result Performing Organization Address City/[facility]/ZIP Co de Phone Number [address] [address] * ECG 12-LEAD (07/17/2025 7:03 PM EST) Ventricular Rate EKG/MIN 76 BPM [facility] Atrial Rate 76 BPM [facility] NH Interval 154 ms [facility] QRS Duration 72 ms [facility] QT Interval 406 ms [facility] QTC Interval 456 ms [facility] P [place] 78 degrees [facility] R Wave [place] 0 degrees [facility] T Wave [place] 44 degrees [facility] 07/17/2025 7:03 PM EST 07/18/2025 11:51 AM EST Narrative [facility] - 07/18/2025 11:51 AM EST Normal sinus rhythm Cannot rule out Anterior infarct , age undetermined Abnormal ECG No previous ECGs available Confirmed by Kashif PINEDA ([id number]) on 07/18/2025 11:51:06 AM us Brian Zavala MD ECG ORDERABLES Final Re sult [facility] documented in this encounter Visit Diagnoses Diagnosis Epigastric pain- Primary Abdominal pain, epigastric Vasovagal syncope Syncope and collapse documented in this encounter Administered Medications Inactive Administered Medications - up to 3 most recent administrations Medication Order MAR Action Action Date Dose Rate Site potassium chloride (MICRO-K) ER capsule 20 mEq 20 mEq, Oral, Once, On 07/17/25 at 2215, For 1 dose, Swallow tablets whole, do not crush or chew. Capsules may be opened and contents sprinkled on a spoonful of applesauce or pudding and should be swallowed immediately without chewing. Microencapsulated tablets may be dissolved in 6 ounces of water, stir and administer immediately. Given 07/17/2025 10:11 PM EST 20 mEq sodium chloride (NS) 0.9 % syringe flush 3 mL 3 mL, Intravenous, As needed, line care, Starting on 07/17/25 at 1835, Per Institutional IV Line Care Policy. documented in this encounter Active and Recently Administered Medications Times are shown in EST. Scheduled Medication Order 07/15/2025 07/16/2025 07/17/2025 potassium chloride (MICRO-K) ER capsule 20 mEq (COMPLETED) 20 mEq, Oral, Once, On 07/17/25 at 2215, For 1 dose, Swallow tablets whole, do not crush or chew. Capsules may be opened and contents sprinkled on a spoonful of applesauce or pudding and should be swallowed immediately without chewing. Microencapsulated tablets may be dissolved in 6 ounces of water, stir and administer immediately. 2211 (Given - Provid er: Brayan Mcfadden RN) PRN Medication Order 07/15/2025 07/16/2025 07/17/2025 sodium chloride (NS) 0.9 % syringe flush 3 mL 3 mL, Intravenous, As needed, line care, Starting on 07/17/25 at 1835, Per Institutional IV Line Care Policy. documented in this encounter Care Teams Strap Making Machine Operator Relationship Specialty Start Date End Date Brian Reyes MD [address] [place] [phone] PCP - General Internal Medicine 07/17/25 documented as of this encounter Additional Source Comments The information contained in this document represents components of the legal health record. It is not the complete legal health record.[facility]
--- OUTSIDE RECORDS SUMMARY | 2025-07-21 08:39 | XMS_ITS | Clinical Summary ---
Author Organization [facility] Address [address] [facility] [address] [place] [phone] Phone Care Team Providers Care Audio Recording Engineer Name Role Phone Brian Reyes MD Primary Care Prov ider Allergies Active Allergy Reactions Criticality Noted Date Comments Fish Derived 07/17/2025 Medications No known medications Encounters Date Type Department Care Team Description 07/17/2025 6:36 PM EST - 07/17/2025 10:38 PM EST Emergency [facility] [address] [place] [address] Brian Zavala MD Discharge Disposition: Home or Self Care from Last 3 Months Social History Tobacco Use Types Packs/Day Years [...] Orientation Straight 07/17/2025 9: 35 PM EST Last Filed Vital Signs Vital Sign Reading [...] Mass Index 24.56 07/17/2025 6:34 PM EST Plan of Treatment Health Maintenance Due Date Last Done Comments Adult Td,Tdap Booster 1983 DEPRESSION SCREENING 1995 SMOKING Hx and SMOKELESS TOBACCO SCREENING 1996 HEPATITIS C SCREENING 2001 HIV ONE-TIME SCREENING (18-6 5 YEARS) 2001 PAP SMEAR 2004 INFLUENZA VACCINE (#1) 2025 COVID-19 VACCINE (1 - 2024-2 6 season) 2025 MAMMOGRAM 12/01/2026 12/01/2024, 12/01/2024, 11/25/2023 HEPATITIS A VACCINES Aged Out No long er eligible based on patient's age to complete this topic HIB VACCINES Aged Out No longer eligi ble based on patient's age to complete this topic MENINGOCOCCAL VACCINES (ACWY) Aged Out No longer eligible based on patient's age to complete this topic MENINGOCOCCAL VACCINES (B) Aged Out N o longer eligible based on patient's age to complete this topic PNEUMOCOCCAL VACCINES (0-49 years) Aged Out No longer eligible b ased on patient's age to complete this topic Medical Devices Not on file Procedures Procedure Name Priority Date/Time Associated Diagnosis Comments URINALYSIS WITH REFLEX TO URINE CULTURE STAT 07/17/2025 8:08 PM EST CBC AND DIFFERENTIAL STAT 07/17/2025 7:19 PM EST LIPASE STAT 07/17/2025 7:19 PM EST LFTS (HEPATIC PANEL) STAT 07/17/2025 7:19 PM EST HCG, SERUM QUALITATIVE STAT 07/17/2025 7:19 PM EST BASIC METABOLIC PANEL (BMP) STAT 07/17/2025 7:19 PM EST CBC AND DIFFERENTIAL STAT 07/17/2025 7:19 PM EST ECG 12-LEAD STAT 07/17/2025 7:03 PM EST from Last 3 Months Results * (ABNORMAL) Urinalysis with Reflex to Urine Culture (07/17/2025 8:08 PM EST) Color Yellow Yellow 07/17/2025 9:07 PM EST [facility] Clarity Clear Clear 07/17/2025 9:07 PM [facility] Glucose Negative Negative 07/17/2025 9:07 PM [facility] Bilirubin Urine Negative Negative 9:07 PM [facility] Ketone Urine 1+(A) Negative 07/17/2025 9:07 PM [facility] Specific [place] 1.015 1.001 - 1.035 07/17/2025 9:07 PM [facility] Blood Negative Negative 07/17/2025 9:07 PM [facility] pH 6.0 5.0 - 8.0 07/17/2025 9:07 PM [facility] Protein Negative Negative 07/17/2025 9:07 PM [facility] Nitrites Negative Negative 07/17/2025 9:07 PM [facility] Leukocyte Esterase Negative Negative 07/17/2025 9:07 PM [facility] Urobilinogen Negative Negative 07/17/2025 9:07 PM [facility] Urine (Urine, Voided) Non-Blood Collection / Unknown 07/17/2025 8:08 PM EST 07/17/2025 8:19 PM EST us Brian Zavala MD LAB URINE ORDERABLES Fin al Result [address] [address] * Human Chorionic Gonadotropin (HCG), Qualitative, Blood (07/17/2025 7:19 PM EST) hCG Qualitative Negative Negative 7:50 PM [facility] Blood (Blood) Venipuncture / Unknown 07/17/2025 7:19 PM EST 07/17/2025 7:23 PM EST us Brian Zavala MD LAB BLOOD BKR ORDERABLES Final Result Performing Organization Address City/[facility]/ZIP Co de Phone Number [address] [address] * (ABNORMAL) CBC and Differential (07/17/2025 7:19 PM EST) WBC 6.38 4.00 - 11.00 K/uL 07/17/2025 7: PM [facility] RBC 4.36 4.00 - 5.20 M/uL 07/17/2025 7: PM [facility] Hemoglobin 13.6 12.0 - 16.0 g/dL 07/17/2025 7: PM [facility] Hematocrit 39.0 36.0 - 46.0 % 07/17/2025 7: PM [facility] MCV 89.4 80.0 - 100.0 fL 07/17/2025 7: PM [facility] MCH 31.2(H) 27.0 - 31.0 pg 07/17/2025 7: PM [facility] MCHC 34.9 32.0 - 36.0 g/dL 07/17/2025 7: PM [facility] MPV 8.7 8.4 - 12.0 fL 07/17/2025 7: PM [facility] RDW-CV 11.9 11.5 - 14.5 % 07/17/2025 7: PM [facility] PLT 211 150 - 450 K/uL 07/17/2025 7: PM [facility] Neutrophils 64.3 % 07/17/2025 7: PM [facility] Lymphocytes 25.1 % 07/17/2025 7: PM [facility] Monocytes 5.6 % 07/17/2025 7: PM [facility] Eosinophils 4.1 % 07/17/2025 7: PM [facility] Basophils 0.6 % 07/17/2025 7: PM [facility] Imm Grans 0.3 % 07/17/2025 7: PM [facility] NRBC 0.0 <=0.0 /100 WBCs 07/17/2025 7: PM [facility] Absolute Neutrophils 4.10 1.92 - 7.60 K/uL 07/17/2025 7: PM [facility] Absolute Lymphocytes 1.60 0.72 - 4.10 K/uL 07/17/2025 7:26 PM [facility] Absolute Monocytes 0.36 0.16 - 1.10 K/uL 07/17/2025 7:26 PM [facility] Absolute Eosinophils 0.26 0.00 - 0.50 K/uL 07/17/2025 7:26 PM [facility] Absolute Basophils 0.04 0.00 - 0.15 K/uL 07/17/2025 7:26 PM [facility] Absolute Imm Grans 0.02 0.00 - 0.09 K/uL 07/17/2025 7:26 PM [facility] Absolute NRBC 0.00 <=0.00 K cells/uL 07/17/2025 7:26 PM [facility] Absolute Neutrophils 4.10 1.92 - 7.60 K/uL 07/17/2025 7:26 PM [facility] Comment:Automated cell count . Manual ANC may differ if performed. Diff Type Auto 07/17/2025 7:26 PM [facility] Blood (Blood) Venipuncture / Unknown 07/17/2025 7:19 PM EST 07/17/2025 7:23 PM EST us Brian Zavala MD LAB BLOOD BKR ORDERABLES Final Result Performing Organization Address City/State/[facility] Co de Phone Number [address] [address] * (ABNORMAL) Hepatic Panel (LFTs) (07/17/2025 7:19 PM EST) AST 40(H) <33 U/L 07/17/2025 7:48 PM [facility] ALT 18 <34 U/L 07/17/2025 7:48 PM [facility] Alkaline Phosphatase 70 40 - 130 U/L 07/17/2025 7:48 PM [facility] Bilirubin, Total 0.8 0.0 - 1.2 mg/dL 07/17/2025 7:48 PM [facility] Bilirubin, Direct 0.3 0.0 - 0.3 mg/dL 07/17/2025 7:48 PM [facility] Total Protein 7.2 6.4 - 8.3 g/dL 07/17/2025 7:48 PM [facility] Albumin 4.5 3.5 - 5.2 g/dL 07/17/2025 7:48 PM [facility] Globulin 2.7 1.9 - 4.1 g/dL 07/17/2025 7:48 PM [facility] Blood (Blood) Venipuncture / Unknown 07/17/2025 7:19 PM EST 07/17/2025 7:23 PM EST us Brian Zavala MD LAB BLOOD BKR ORDERABLES Final Result [address] [address] * (ABNORMAL) Lipase (07/17/2025 7:19 PM EST) Lipase 96(H) 13 - 60 U/L 07/17/2025 7:48 PM [facility] Blood (Blood) Venipuncture / Unknown 07/17/2025 7:19 PM EST 07/17/2025 7:23 PM EST us Brian Zavala MD LAB BLOOD BKR ORDERABLES Final Result Performing Organization Address City/[facility]/ZIP Co de Phone Number [address] [address] * (ABNORMAL) Basic Metabolic Panel (BMP) (07/17/2025 7:19 PM EST) Sodium 139 136 - 145 mmol/L 07/17/2025 7:48 PM [facility] Potassium 2.8(L) 3.4 - 5.1 mmol/L 07/17/2025 7:48 PM [facility] Chloride 104 98 - 107 mmol/L 07/17/2025 7:48 PM [facility] CO2 23 20 - 31 mmol/L 07/17/2025 7:48 PM [facility] BUN 11 6 - 23 mg/dL 07/17/2025 7:48 PM [facility] Creatinine 0.70 0.50 - 1.00 mg/dL 07/17/2025 7:48 PM [facility] Glucose 104(H) 70 - 99 mg/dL 07/17/2025 7:48 PM [facility] Calcium 9.1 8.5 - 10.5 mg/dL 07/17/2025 7:48 PM [facility] eGFR 111 >59 mL/min/1.7 3m2 07/17/2025 7:48 PM [facility] Comment:Estimated glomerular filtration rate calculated using the CKD-EPI refit equation. Anion Gap 12 3 - 17 mmol/L 07/17/2025 7:48 PM [facility] Blood (Blood) Venipuncture / Unknown 07/17/2025 7:19 PM EST 07/17/2025 7:23 PM EST us Brian Zavala MD LAB BLOOD BKR ORDERABLES Final Result Performing Organization Address City/[facility] Co de Phone Number [address] [address] * ECG 12-LEAD (07/17/2025 7:03 PM EST) Ventricular Rate EKG/MIN 76 BPM [facility] Atrial Rate 76 BPM [facility] RI Interval 154 ms [facility] QRS Duration 72 ms [facility] QT Interval 406 ms [facility] QTC Interval 456 ms [facility] P [place] 78 degrees [facility] R Wave [place] 0 degrees [facility] T Wave [place] 44 degrees [facility] 07/17/2025 7:03 PM EST 07/18/2025 11:51 AM EST Narrative [facility] - 07/18/2025 11:51 AM EST Normal sinus rhythm Cannot rule out Anterior infarct , age undetermined Abnormal ECG No previous ECGs available Confirmed by Kashif PINEDA ([id number]) on 07/18/2025 11:51:06 AM us Brian Zavala MD ECG ORDERABLES Final Re sult [facility] from Last 3 Months Insurance C3 ACO C3 ACO C3 ACO C3 ACO C3 ACO C3 ACO Care Teams Audio Recording Engineer Relationship Specialty Start Date End Date Brian Reyes MD [address] [place] [id number] PCP - General Internal Medicine 07/17/25 Additional Source Comments The information contained in this document represents components of the legal health record. It is not the complete legal health record.[facility]
--- OUTSIDE RECORDS SUMMARY | 2025-07-21 08:39 | XMS_ITS | Clinical Summary ---
Author Organization [facility] Address [facility] [place] [address] Phone Care Team Providers Care Boom Truck Driver Name Role Phone Unavailable Primary Care Provider Unavailabl e Allergies Active Allergy Reactions Criticality Noted Date Comments Avocado 09/24/2019 Oral allergy [facility] Dust 09/15/2018 Other 09/24/2019 Apple, banana, orange, kiwi, grape - oral allergy syndrome Pollen Extracts 11/04/2017 Prednisone 09/14/2020 seizures Shellfish Derived Itching 09/24/2019 Medications Trelegy Ellipta 200-62.5-25 mcg inhaler 4 Active albuterol [...] hypertension 11/11/2023 Wellness examination 11/11/2023 Seizure disorder 04/22/2019 Overview (05/18/2024): Normal CT and MRI follows with Dr Hatfield Resolved Problems Problem Noted Date Diagnosed Date Resolved Date H. pylori infection 02/21/2018 05/18/20 24 Overview (05/18/2024): 04/2015 and gastritis;Unclear of treatment Encounters Date Type Department Care Team Description 05/31/2025 Telephone [facility] [address] [address] Jocelyn Zamudio [place] 05/13/2025 Telephone THMA [facility] Care [address] [address] Kathryn Cortez MA from Last 3 Months Immunizations Immunization Administration [...] History Date Comments Allergic Asthma Hypertension Seizures (CMS/HCC V24, CMS/[facility] V28) H. pylori infection 02/21/201804/2015 [...] HIV Screening 07/07/2022 Hepatitis C Screening 07/07/2022 COVID-19 Vaccine ( season) 2025 09/21/2021, 12/31/2020, 12/10/2020 Influenza Vaccine (#1) 2025 2, 04/18/2021, 05/19/2020, Additional history exists Social Influencers of Health Screening 05/18/2025 05/18/2024 Hypertension/CHF/CAD Annual BMP Blood Test 07/28/2025 07/28/2024, [...] Diagnosis Comments MG MAMMO DIGITAL SCREENING W SAMPSON BILAT Routine 12/01/2024 10:54 AM EDT Encounter for screening mammogram for breast cancer COMPREHENSIVE METABOLIC PANEL STAT 07/28/2024 10:40 AM EST from Last 3 Months or Most Recently Relevant to Health Maintenance Results * MG Mammo Digital Screening w Sampson bilat (12/01/2024 10:54 AM EDT) Anatomical Region [...] target date for the next mammogram. LOCATION: [facility]iology Services Mammography Department. [address], [place], [address]. [phone]. -------- FINAL REPORT -------- Dictated By: Cyndee Duong Dictated Date: 12/01/2024 15:58 ET Assigned Physician: Cyndee Duong Reviewed and Electronically Signed By: Cyndee Duong Signed Date: 12/01/2024 16:00 ET Workstation ID: [id number] Transcribed By: Self Edit Transcribed Date: 12/01/2024 [...] a targetdate for the next mammogram. LOCATION: [facility]iology [facility] Mammography Department.[place], [place], [address]. [phone]. -------- FINAL REPORT -------- Dictated By: Cyndee Duong Dictated Date: 12/01/2024 15:58 ET Assigned Physician: Cyndee Duong Reviewed and Electronically Signed By: Cyndee Duong Signed Date: 12/01/2024 16:00 ET Workstation ID: [id number] Transcribed By: Self Edit Transcribed Date: 12/01/2024 15:58 ET us Self Referral Nzpl IMG BI PROCEDURES Final Resul t * (ABNORMAL) Comprehensive metabolic panel (07/28/2024 10:40 AM EST) Sodium 140 136 - 145 mmol/L LAB CHEMISTRY METHOD 07/28/2024 11:28 AM [facility] Potassium 4.2 3.5 - 5.1 mmol/L LAB CHEMISTRY METHOD 07/28/2024 11:28 AM [facility] Chloride 106 98 - 107 mmol/L LAB CHEMISTRY METHOD 07/28/2024 11:28 AM [facility] CO2 27 20 - 31 mmol/L LAB CHEMISTRY METHOD 07/28/2024 11:28 AM [facility] Anion Gap 7(L) 10 - 17 LAB CHEMISTRY METHOD 07/28/2024 11:28 AM [facility] Glucose 90 74 - 106 mg/dL LAB CHEMISTRY METHOD 07/28/2024 11:28 AM [facility] BUN 10 9 - 23 mg/dL LAB CHEMISTRY METHOD 07/28/2024 11:28 AM [facility] Creatinine 0.82 0.55 - 1.02 mg/dL LAB CHEMISTRY METHOD 07/28/2024 11:28 AM [facility] eGFR 92 >=60 mL/min/1. 73m2 LAB CHEMISTRY METHOD 07/28/2024 11:28 AM [facility] Comment:Calculation based on the Chronic Kidney Disease Epidemiology Collaboration (CKD-EPI) equation refit without adjustment for race. BUN/Creatinine Ratio 12.2 12.0 - 20.0 LAB CHEMISTRY METHOD 07/28/2024 11:28 AM [facility] Calcium 9.4 8.3 - 10.6 mg/dL LAB CHEMISTRY METHOD 07/28/2024 11:28 AM [facility] AST (SGOT) 17 0 - 34 unit/L LAB CHEMISTRY METHOD 07/28/2024 11:28 AM [facility] ALT (SGPT) 13 10 - 49 unit/L LAB CHEMISTRY METHOD 07/28/2024 11:28 AM [facility] Alkaline Phosphatase 84 46 - 116 unit/L LAB CHEMISTRY METHOD 07/28/2024 11:28 AM [facility] Total Protein 7.5 5.7 - 8.2 g/dL LAB CHEMISTRY METHOD 07/28/2024 11:28 AM [facility] Albumin 4.1 3.4 - 5.0 g/dL LAB CHEMISTRY METHOD 07/28/2024 11:28 AM [facility] Total Bilirubin 0.6 0.3 - 1.2 mg/dL LAB CHEMISTRY METHOD 07/28/2024 11:28 AM [facility] Blood Venous blood specimen / Unknown Venipuncture / Unknown 07/28/2024 10:40 AM EST 07/28/2024 10:54 AM EST us Julieta Colmenares MD LAB BLOOD ORDERABLES Final Res ult [facility] [address] [place] [address], from Last 3 Months or Most Recently Relevant to Health Maintenance [place] - [place]
[2025-07-21 15:34] LABS: Potassium 3.6 mmol/L (3.3-5.1)
== END 2025-07-21 08:36 | disposition home or self-care (01) ==
LOC: HO.CHCLDS 08:35
PROVIDERS: Visit Provider Internal Medicine
DX: E87.6 Hypokalemia (principal)
CPT/HCPCS: 36415; 84132